=== PATIENT | male | born 2000 | race Caucasian/White ===

== ENCOUNTER 2021-08-15 10:54 | Emergency (ER) | payer OTHER, SELFPAY ==
[2021-08-15 11:09] VITALS: BP 157/74; PULSE 103; RESP 18; TEMP 37; O2SAT 100; BMI 36.0
--- NOTE | 2021-08-15 11:53 | ED.DENTAL ---
HPI - Dental/Oral General Chief complaint: Dental/Oral Stated complaint: dental pain, facial swelling Time Seen by Provider: 08/15/21 11:53 Source: patient Mode of arrival: ambulatory Limitations: no limitations History of Present Illness HPI Narrative: 21-year-old male presents with 2-3 days of lower facial swelling. Patient has had a toothache in his left lower molar for the last 2 weeks. Patient states the swelling in his cheek is getting smaller. No fevers. He is able to open his mouth all the way, can eat and drink, although it hurts to chew on the left side. Patient does have a dentist and has called his dentist. States pain is 10/10 especially at night. MD Complaint: tooth pain Location: Tooth # (18) Teeth map: 1. piece of tooth avulsed Onset (ago): day(s) (3) Duration: constant Severity: severe Severity scale (1-10): 10 Relieving factors: nothing Exacerbating factors: chewing Treatment prior to arrival: none Related Data Previous Rx's Medication Instructions Recorded clindamycin HCl 300 mg capsule 300 mg PO QID 10 Days #40 cap 08/15/21 Allergies Allergy/AdvReac Type Severity Reaction Status Date / Time No Known Allergies Allergy Unverified 08/16/20 19:09 [No Known Allergies*] Review of Systems Review of Systems: Constitutional : No Weight loss, No Fever, No Chills, No Night Sweats,No Fatigue, No Malaise ENT/Mouth : Dental pain, left facial swelling, No Hearing loss, No Ear Pain, No Nasal Congestion, NoSinus Pain, No Hoarseness, No sore throat, No Rhinorrhea, NoSwallowing Difficulty Eyes: No Eye Pain, No Swelling, No Redness, No Foreign Body, NoDischarge, No Vision Changes Cardiovascular : No Chest Pain, No SOB, No Dyspnea on Exertion, NoOrthopnea, No Edema, No Palpitations Respiratory : No Cough, No Sputum, No Wheezing, No Smoke Exposure, No Dyspnea Genitourinary : no irregular bleeding, No Dysuria, No UrinaryFrequency, No Hematuria, No Urinary Incontinence, No Urgency, No FlankPain, No Urinary Flow Changes, No Hesitancy Musculoskeletal : No joint pain, No Myalgias, No Joint Swelling Skin : No Skin Lesions, No rash Neuro : No Weakness, No Numbness, No Paresthesias, No Loss ofConsciousness, No Dizziness, No Headache PMFSH Past Medical History Medical History (Updated 08/15/21 @ 11:57 by SOLANGE Gibson) Patient denies medical problems Social History Social History Advance Directives: No Physical Exam Vital Signs: Vital Signs: Last Vital Signs Temp 98.6 F 08/15/21 11:09 Pulse 103 H 08/15/21 11:09 Resp 18 08/15/21 11:09 BP 157/74 H 08/15/21 11:09 Pulse Ox 100 08/15/21 11:09 Body Mass Index 36.0 Const: General: cooperative, no acute distress, well developed, alert and awake Nutritional Appearance: well nourished Orientation/consciousness: patient oriented x3 Limitations: no limitations HENMT: Head: Yes normal to inspection, Yes normocephalic and Yes atraumatic Ears: hearing grossly normal bilaterally, external ears normal, TM's normal bilaterally and EAC's normal General nose exam: Normal external nose present Face and sinus: Yes sinuses nontender, Yes erythema, Yes edema and No Facial tenderness on exam of face and sinuses Mouth: Normal oral and palatal mucosa present Teeth and gingiva: abnormal dentition Teeth image: 1. piece of tooth broken off Throat: Yes posterior oropharynx normal Eyes: Conjunctivae: conjunctivae normal Pupils: Equal, round and reactive pupils present EOM: EOMs intact bilaterally Neck: Neck: Yes full ROM, Yes no lymphadenopathy and Yes supple Resp: Effort & Inspection: normal respiratory effort and able to speak in complete sentences Auscultation: clear to auscultation bilaterally, no crackles, no rales, no rhonchi and no wheezes Cardio: Rate: regular rate Rhythm: regular rhythm Heart sounds: S1 normal heart sound present and S2 normal heart sound present Skin: General skin exam: no rashes or lesions noted Neuro: General: patient oriented x3, tone normal and moves all extremities Cranial nerves: Yes Equal, round and reactive pupils present Extrem: General: Yes normal to inspection and Yes full ROM Psych: Appearance: grossly normal Affect: normal affect Attitude: cooperative Thought process: Normal thought process present Course Course Course Narrative: 21-year-old male presents with 2-3 days of left lower facial swelling. No fevers. No trismus. Patient can eat and drink. On exam, patient has stable vitals, can open his mouth all the way, has a cracked tooth 18, with a piece of the tooth avulsed. No palpable gingival abscess, no cellulitis of the gingiva. No submandibular swelling, no swelling of the floor of the mouth. Mild left facial swelling. Clindamycin, f/u with dentist. Return precautions given Discharge Plan Discharge Clinical Impression: Dental abscess Patient Disposition: Home, Self-Care Instructions: Dental Abscess (ED) Additional Instructions: Please fill your prescriptions antibiotics and start soon as possible. Want you to take 3 doses today before midnight. Please call dentist today and tell them you have a dental abscess, and that you are started a 10 day course of antibiotics. Some dentists will wait until you are done with antibiotics before they pull your tooth. your dentist will make that decision please return if you fevers, trouble opening up opening your mouth, nausea, vomiting, or any other new or concerning symptoms Prescriptions: New clindamycin HCl 300 mg capsule 300 mg PO QID 10 Days Qty: 40 RF: 0 Interventions: ED Discharge Assessment Last Done: 08/15/21 12:08 Discharge Date/Time: 08/15/21 12:09
[2021-08-15] MEDS: Diphth,Pertus(ACell),Tet Adult 0.5 ML SYRINGE IM (12:03)
== END 2021-08-15 12:09 | disposition home or self-care (01) ==
PROVIDERS: Emergency Provider Emergency Medicine
DX: K04.7 Periapical abscess without sinus (principal)
CPT/HCPCS: 90471; 90715; 99283; 99284

== ENCOUNTER 2022-10-25 09:55 | Emergency (ER) | payer OTHER, SELFPAY ==
[2022-10-25 10:11] VITALS: BP 148/72; PULSE 82; RESP 18; TEMP 36.9; O2SAT 97; BMI 36.9
--- NOTE | 2022-10-25 10:18 | ED_ITS ---
HPI - Nausea/Vomiting/Diarrhea General Chief complaint: Nausea/Vomiting/Diarrhea Stated complaint: vomiting Time Seen by Provider: 10/25/22 10:16 Source: patient Mode of arrival: ambulatory Limitations: no limitations History of Present Illness HPI Narrative: 22-year-old otherwise healthy male presents to the ER for evaluation of 1 day of bilious vomiting and diarrhea. Patient states last night after eating a large meal he had several episodes of vomiting. Was food contents at that time. He also had a couple episodes of loose stool and some central abdominal cramping. He woke up at 05:00 today with ongoing vomiting and diarrhea. He states the vomitus now is yellow and bilious. He denies any fever or chills. Last episode of vomiting was 1 hour ago. No known sick contacts or bad food exposures per h is report. MD elicited complaint: nausea, vomiting, diarrhea and abdominal pain Onset (ago): day(s) (1) Description of vomiting: food contents Description of diarrhea: semi-solid Associated nausea: Yes Associated abdominal pain: Yes Location of pain: diffuse Radiation: diffuse Pain consistency: intermittent Severity: moderate Quality: cramping Exacerbating factors: eating Relieving factors: none Associated symptoms: denies other symptoms Related Data Previous Rx's Medication Instructions Recorded clindamycin HCl 300 mg capsule 300 mg PO QID 10 days #40 caps 08/15/21 ondansetron 4 mg disintegrating 4 mg PO Q8H PRN nausea and 10/25/22 tablet vomiting #10 tabs Allergies Allergy/AdvReac Type Severity Reaction Status Date / Time No Known Allergies Allergy Unverified 08/16/20 19:09 [No Known Allergies*] Review of Systems Review of Systems: Constitutional: No Fever, No Chills ENT/Mouth: No sore throat, No Rhinorrhea, No Swallowing Difficulty Cardiovascular: No Chest Pain, No SOB, No Orthopnea, No Edema Respiratory: No Cough, No Sputum, No Wheezing, No dyspnea Gastrointestinal: + Nausea, +Vomiting, + Diarrhea, + abdominal Pain, No Hematochezia, No Melena Genitourinary: No Dysuria, No Urinary Frequency, No Hematuria Musculoskeletal: No joint pain, No Myalgias Skin: No Skin Lesions, No rash Neuro: No Weakness, No Numbness, No Dizziness, + Headache Heme/Lymph: No Bruising, No Lymphadenopathy Endocrine: No Polyuria, No Polydipsia Gastrointestinal: Gastrointestinal: Reports nausea PMFSH Past Medical History Medical History (Updated 10/25/22 @ 11:56 by SOLANGE Monroy) Patient denies medical problems Social History Social History Advance Directives: No Advance Directives Information Provided: No Physical Exam Vital Signs: Vital Signs: Last Vital Signs Temp 98.4 F 10/25/22 10:11 Pulse 82 10/25/22 10:11 Resp 18 10/25/22 10:11 BP 148/72 H 10/25/22 10:11 Pulse Ox 97 10/25/22 10:11 O2 Del Method 10/25/22 10:11 BMI result Body Mass Index 36.9 Appearance: Alert. Oriented X3. No acute distress. Eyes: Pupils equal, round and reactive to light. ENT: Pharynx normal. Moist mucous membranes. Neck: Normal inspection. Neck supple. CVS: Normal heart rate and rhythm. Pulses normal. Respiratory: No respiratory distress. Breath sounds normal. Abdomen: Soft and nontender. +BS x4 Skin: Skin warm and dry. Normal skin color. Normal skin turgor. No rashes. Extremities: No lower extremity edema. Neuro: Oriented X 3. Grossly normal, nonfocal Course Course Course Narrative: 22-year-old male presents to the ER for evaluation of vomiting, diarrhea and periumbilical abdominal pain that started yesterday. Last episode of vomiting was 1 hour prior to arrival. He arrived to the ER appearing well, abdomen is soft and nontender. Vital signs are stable. Will check basic lab workup, check for flu and COVID. Provide IV fluids and antiemetic.Will reassess. Dispo pending results & improvement. Will reassess. Reevaluation(s) Reevaluation #1: Dispo pending results of her event. Patient checking on his cellphone. He is tolerating oral Gen drill. He is feeling better after fluids and Zofran. His labs are unremarkable. Fluid COVID are negative. Most likely viral gastroenteritis. Stable for discharge home with p.r.n. Zofran and supportive care. All questions were answered. Patient agrees plan Medications Administered Discontinued Medications Generic Name Dose Route Start Last Admin Trade Name Freq PRN Reason Stop Dose Admin Sodium Chloride 1,000 mls @ 999 mls/hr 10/25/22 10:30 10/25/22 11:22 Ns IVCONT 10/25/22 11:30 999 mls/hr .Q1H1M LARISA Administration Ondansetron HCl 4 mg 10/25/22 10:18 10/25/22 11:22 Ondansetron Hcl 4 Mg/2 Ml Vial IVPUSH 10/25/22 10:19 4 mg ONCE ONE Administration MDM - Nausea/Vomiting/Diarrhea Lab Data Result diagrams: 10/25/22 11:10/25/22 11:22 Labs: Lab Results 10/25/22 10/25/22 10/25/22 Range/Units 11: 11: 11: WBC 12.2 H (4.8-10.8) X10*3/uL RBC 5.47 (4.60-5.80) X10*6/uL Hgb 16.1 (14.0-18.0) g/dl Hct 47.1 (42.0-52.0) % MCV 86.1 (80.0-98.0) fL MCH 29.4 (27.0-33.0) pg MCHC 34.2 (31.0-36.0) g/dl RDW 12.9 (11.0-16.0) % Plt Count 212 (160-400) X10*3/uL MPV 11.3 (9.4-12.4) fL Immature Gran % (Auto) 0.3 (0.0-0.4) % Neut % (Auto) 80.3 H (45-73) % Lymph % (Auto) 12.7 L (20-40) % Estill % (Auto) 6.3 (2-11) % Eos % (Auto) 0.2 (0-4) % Baso % (Auto) 0.2 (0-2) % Lymph # (Auto) 1.5 (1.2-4.9) X10*3/uL Estill # (Auto) 0.8 (0.1-1.2) X10*3/uL Eos # (Auto) 0.0 (0.0-0.4) X10*3/uL Baso # (Auto) 0.0 (0.0-0.2) X10*3/uL Abs Immat Gran (auto) 0.04 H (0.00-0.03) X10*3/uL Absolute Neuts (auto) 9.8 H (2.0-8.3) x10*3/uL Absolute Nucleated RBC 0.000 (0.0-0.012) X10*3/uL Nucleated RBC % (auto) 0.0 (0.0-0.2) /100WBC Sodium 143 (135-145) mmol/L Potassium 4.4 (3.3-5.1) mmol/L Chloride 108 (96-108) mmol/L Carbon Dioxide 24 (22-29) mmol/L Anion Gap 15 (12-20) BUN 20 H (9-16) mg/dL Creatinine 0.89 (0.5-1.4) mg/dL Estim Creat Clear Calc 163.0 Estimated GFR > 60 Random Glucose 91 (60-115) mg/dL Calcium 10.4 H (8.4-10.2) mg/dL Magnesium 2.1 (1.6-2.6) mg/dL Total Bilirubin 0.8 (0.0-1.0) mg/dL Direct Bilirubin 0.3 (0.0-0.5) mg/dL AST 38 H (5-37) U/L ALT 36 (0-40) U/L Alkaline Phosphatase 96 (39-117) U/L Total Protein 7.5 (6.5-8.0) g/dL Albumin 4.8 (3.5-5.0) g/dL Lipase (8-78) U/L COVID-19 (GIULIANO) (Negative) COVID-19 Clin Com Influenza Type A (ARCHANA) Negative (Negative) Influenza Type B (ARCHANA) Negative (Negative) Influenza A & B Note See Note 10/25/22 10/25/22 Range/Units 11:22 11:22 WBC (4.8-10.8) X10*3/uL RBC (4.60-5.80) X10*6/uL Hgb (14.0-18.0) g/dl Hct (42.0-52.0) % MCV (80.0-98.0) fL MCH (27.0-33.0) pg MCHC (31.0-36.0) g/dl RDW (11.0-16.0) % Plt Count (160-400) X10*3/uL MPV (9.4-12.4) fL Immature Gran % (Auto) (0.0-0.4) % Neut % (Auto) (45-73) % Lymph % (Auto) (20-40) % Estill % (Auto) (2-11) % Eos % (Auto) (0-4) % Baso % (Auto) (0-2) % Lymph # (Auto) (1.2-4.9) X10*3/uL Estill # (Auto) (0.1-1.2) X10*3/uL Eos # (Auto) (0.0-0.4) X10*3/uL Baso # (Auto) (0.0-0.2) X10*3/uL Abs Immat Gran (auto) (0.00-0.03) X10*3/uL Absolute Neuts (auto) (2.0-8.3) x10*3/uL Absolute Nucleated RBC (0.0-0.012) X10*3/uL Nucleated RBC % (auto) (0.0-0.2) /100WBC Sodium (135-145) mmol/L Potassium (3.3-5.1) mmol/L Chloride (96-108) mmol/L Carbon Dioxide (22-29) mmol/L Anion Gap (12-20) BUN (9-16) mg/dL Creatinine (0.5-1.4) mg/dL Estim Creat Clear Calc Estimated GFR Random Glucose (60-115) mg/dL Calcium (8.4-10.2) mg/dL Magnesium (1.6-2.6) mg/dL Total Bilirubin (0.0-1.0) mg/dL Direct Bilirubin (0.0-0.5) mg/dL AST (5-37) U/L ALT (0-40) U/L Alkaline Phosphatase (39-117) U/L Total Protein (6.5-8.0) g/dL Albumin (3.5-5.0) g/dL Lipase 15 (8-78) U/L COVID-19 (GIULIANO) Negative (Negative) COVID-19 Clin Com See Note Influenza Type A (ARCHANA) (Negative) Influenza Type B (ARCHANA) (Negative) Influenza A & B Note Discharge Plan Discharge Clinical Impression: Gastroenteritis Patient Disposition: Home, Self-Care Instructions: Gastroenteritis (ED) Additional Instructions: You lab workup today was unremarkable. You are negative for COVID and Flu. You most likely have a viral GI bug also known as gastroenteritis. Treatment is supportive care, symptoms usually resolve on their own in 48-72 hours. Recommend rest and plenty of oral hydration. Stick to a bland diet like soup and toast while you are not feeling well. Take the prescribed medication as needed for nausea. Recommend over the counter Pepto Bismol or Imodium for upset stomach and diarrhea. Follow up with your doctor as needed. If you develop new or worsening symptoms call 911 or come back to the ER for further evaluation. Prescriptions: New ondansetron 4 mg tablet,disintegrating 4 mg PO Q8H PRN (Reason: nausea and vomiting) Qty: 10 0RF No Action clindamycin HCl 300 mg capsule 300 mg PO QID 10 Days Qty: 40 0RF Stand Alone Forms: Work/School Release
--- OUTSIDE RECORDS SUMMARY | 2022-10-25 10:27 | XMS_ITS | Continuity of Care Document ---
:2000 Author Organization [facility] Address [address] [place] [id number]- Care Team Providers Name Role Phone Ely De La Rosa MD Primary Care Physician Encounter [facility] Date(s): 12/08/19 - 03/15/20 [facility] [address] [place] [id number]- Attending Physician: Not on Staff, Attending MD Admitting Physician: Ely De La Rosa MD Allergies, Adverse Reactions, Alerts Substance Reaction Severity Status NKA Active Immunizations Given and Recorded Vaccine Date Status Refusal Reason Human Papillomavirus Vaccine 08/24/14 Given Human Papillomavirus Vaccine 04/28/14 Given Human Papillomavirus Vaccine 02/22/14 Given tetanus/diphtheria/pertussis, acel(Tdap)1 01/05/13 Given Meningococcal Conjugate Vaccine2 01/05/13 Given influenza virus vaccine, inactivated4 01/05/13 Given influenza virus vaccine, inactivated5 10/15/11 Given influenza virus vaccine, inactivated6 10/14/10 Given Varicella Virus Vaccine 05/12/07 Given Varicella Virus Vaccine 05/11/02 Given Measles/Mumps/Rubella Virus Vaccine 05/23/05 Given Measles/Mumps/Rubella Virus Vaccine 05/11/02 Given Poliovirus Vaccine, Inactivated 05/23/05 Given Poliovirus Vaccine, Inactivated 01 Given Poliovirus Vaccine, Inactivated 01 Given Poliovirus Vaccine, Inactivated 01 Given Diphth/Pertussis,Acel/Tetanus (oldterm) 05/23/05 Given Diphth/Pertussis,Acel/Tetanus (oldterm) 07/27/02 Given Diphth/Pertussis,Acel/Tetanus (oldterm) 01 Given Diphth/Pertussis,Acel/Tetanus (oldterm) 01 Given Diphth/Pertussis,Acel/Tetanus (oldterm) 01 Given Haemophilus B Conj Vaccine (oldterm) 05/11/02 Given Haemophilus B Conj Vaccine (oldterm) 01 Given Haemophilus B Conj Vaccine (oldterm) 01 Given Haemophilus B Conj Vaccine (oldterm) 01 Given Hepatitis B Vaccine (old term) 01 Given Hepatitis B Vaccine (old term) 01 Given Hepatitis B Vaccine (old term) 01 Given Pneumococcal Conjugate (PCV7) (oldterm) 01 Given Pneumococcal Conjugate (PCV7) (oldterm) 01 Given Pneumococcal Conjugate (PCV7) (oldterm) 01 Given Not Given Vaccine Date Status Refusal Reason Meningococcal Conjugate Vaccine3 04/20/18 Not Given Parent Or Guardian Refuses 1Admin Note: VIS dated 12/23/2011 [id number] Note: VIS dated 09/12/2011 given3 Admin Note: VIS from 05/31/12 [id number] Note: VIS dated 06/24/11 [id number] Note: vis given [id number] Note: Pt left before vaccine could be given Medications omeprazole 20 mg oral delayed release tablet 1 tablet = 20 mg, By Mouth, Daily, # 30 tablet, 0 Refills, Maintenance, 12/08/19 15:59:00 EST, [facility] - [address], 174.7, cm, 04/20/18 13:32:00 EDT, Height, 104.6, kg, 12/08/19 14:16:00 EST, Dry Weight Start Date: 12/08/19 Stop Date: 01/07/20 Status: Ordered Problem List Condition Effective Dates Status Health Status Informant Asthma(Confirmed) 2006 Active Attention deficit hyperactivity Active disorder(Confirmed) Malocclusion with articulation Active problem(Confirmed) Myopia(Confirmed) Active Social History Social History Type Response Smoking Status Never smoker; Tobacco user i n household: Yes; Type: Cigarettes; Other: mom smokes; entered on: 04/20/18 Sex
--- OUTSIDE RECORDS SUMMARY | 2022-10-25 10:27 | XMS_ITS | Continuity of Care Document ---
:2001 Author Organization [facility] Address [address] [place] [address]- Care Team Providers Name Role Phone De La Rosa MD, Ely Melendez Primary Care Physician [place] [facility] [place]16/20 [facility] [address] [place] [id number]- [facility] Attending Physician: Jason Jin MD Referring Physician: Ely De La Rosa MD Allergies, [...] Guardian Refuses 1Admin Note: VIS dated 12/23/2011 [id number] Note: VIS dated 09/12/2011 given3 Admin Note: VIS from 05/31/12 [id number] Note: VIS dated 06/24/11 [id number] Note: vis given [id number] Note: Pt left before vaccine could be [...]
--- OUTSIDE RECORDS SUMMARY | 2022-10-25 10:27 | XMS_ITS | Continuity of Care Document ---
:2001 Author Organization [facility] Address [address] [place] [address]- Care Team Providers Name Role Phone De La Rosa MD, Ely Melendez Primary Care Physician Encounter [facility] [place] Date(s): 01/17/20 - 01/27/20 [facility] [address] [place] [address]- [place] Attending Physician: Lindsey Ocampo Admitting Physician: AdmLindsey li Referring Physician: AdmtrLindsey Allergies, Adverse Reactions, Alerts Substance Reaction Severity [...] Guardian Refuses 1Admin Note: VIS dated 12/23/2011 [id number] Note: VIS dated 09/12/2011 given3 Admin Note: VIS from 05/31/12 [id number] Note: VIS dated 06/24/11 [id number] Note: vis given [id number] Note: Pt left before vaccine could be [...]
--- OUTSIDE RECORDS SUMMARY | 2022-10-25 10:27 | XMS_ITS | Continuity of Care Document ---
:2001 Author Organization [facility] Address [address] [place] [id number]- Care Team Providers Name Role Phone De La Rosa MD, Ely Melendez Primary Care Physician Encounter [facility] [place] Date(s): 02/14/20 - 02/24/20 [facility] [address] [place] [id number]- Attending Physician: Lindsey Ocampo Admitting Physician: AdmLindsey [...] Guardian Refuses 1Admin Note: VIS dated 12/23/2011 [id number] Note: VIS dated 09/12/2011 given3 Admin Note: VIS from 05/31/12 [id number] Note: VIS dated 06/24/11 [id number] Note: vis given [id number] Note: Pt left before vaccine could be [...]
[2022-10-25] MEDS: ondansetron HCL 4 MG/2 ML VIAL IVPUSH (11:22)
[2022-10-25] MEDS: 0.9 % Sodium Chloride 1,000 ML 999 ML IVCONT (11:22)
[2022-10-25 11:33] LABS: MANUAL DIFF FLAG NO
[2022-10-25 11:35] LABS: Basophils Percent Auto 0.2 % (0-2); Eosinophils Percent Auto 0.2 % (0-4); Hematocrit 47.1 % (42.0-52.0); Hemoglobin 16.1 g/dl (14.0-18.0); Imm Gran Abs Auto 0.04 X10*3/uL (0.00-0.03); Imm Gran Pct Auto 0.3 % (0.0-0.4); Lymphocytes Absolute Auto 1.5 X10*3/uL (1.2-4.9); Lymphocytes Percent Auto 12.7 % (20-40); Mean Corpuscular HGB Conc 34.2 g/dl (31.0-36.0); Mean Corpuscular Hemoglobin 29.4 pg (27.0-33.0); Mean Corpuscular Volume 86.1 fL (80.0-98.0); Mean Platelet Volume 11.3 fL (9.4-12.4); Monocytes Absolute Auto 0.8 X10*3/uL (0.1-1.2); Monocytes Percent Auto 6.3 % (2-11); Neutrophils Absolute Auto 9.8 x10*3/uL (2.0-8.3); Neutrophils Percent Auto 80.3 % (45-73); Platelet Count 212 X10*3/uL (160-400); Red Blood Count 5.47 X10*6/uL (4.60-5.80); Red Cell Distribution Width 12.9 % (11.0-16.0); White Blood Count 12.2 X10*3/uL (4.8-10.8)
[2022-10-25 11:48] LABS: COVID-19 Test Negative (Negative); IDNOW Serial# BCCEAD1C
[2022-10-25 11:52] LABS: Lipase 15 U/L (8-78)
[2022-10-25 11:54] LABS: IDNOW Serial# 9DB6401D; Influenza A Negative (Negative); Influenza B2 Negative (Negative)
[2022-10-25 11:59] LABS: Alanine Aminotransferase 36 U/L (0-40); Albumin Level 4.8 g/dL (3.5-5.0); Alkaline Phosphatase 96 U/L (39-117); Anion Gap 15 (12-20); Aspartate Amino Transferase 38 U/L (5-37); Bilirubin Direct 0.3 mg/dL (0.0-0.5); Bilirubin Total 0.8 mg/dL (0.0-1.0); Blood Urea Nitrogen 20 mg/dL (9-16); Calcium 10.4 mg/dL (8.4-10.2); Carbon Dioxide 24 mmol/L (22-29); Chloride 108 mmol/L (96-108); Estimated Glomerular Filt Rate > 60; Glucose Random 91 mg/dL (60-115); Magnesium 2.1 mg/dL (1.6-2.6); Potassium 4.4 mmol/L (3.3-5.1); Sodium 143 mmol/L (135-145); Total Protein 7.5 g/dL (6.5-8.0)
--- NOTE | 2022-10-25 12:03 | PC.NURSE ---
PT TOLERATING PO TRIAL WITH NO ISSUE
== END 2022-10-25 12:15 | disposition home or self-care (01) ==
PROVIDERS: Physician Assistant; Emergency Provider Emergency Medicine
DX: K52.9 Noninfective gastroenteritis and colitis, unspecified (principal); R11.2 Nausea with vomiting, unspecified; Z20.822 Contact with and (suspected) exposure to COVID-19
CPT/HCPCS: 36415; 80048; 80076; 83690; 83735; 85025; 87502; 87635; 96374; 99283; 99284; J2405

== ENCOUNTER 2025-03-31 15:29 | Emergency (ER) | payer OTHER, SELFPAY ==
[2025-03-31 15:54] VITALS: BP 117/67; PULSE 92; RESP 16; TEMP 36.8; O2SAT 97; BMI 34.3
--- NOTE | 2025-03-31 15:54 | ED_ITS ---
HPI - Extremity Injury (Upper) General Chief Complaint: Wound/Laceration Stated Complaint: Left second (index)finger injury Time Seen by Provider: 03/31/25 15:57 Source: patient Mode of arrival: ambulatory Limitations: no limitations History of Present Illness ED Provider: jose lama program director group work HPI narrative: Patient is a 25 old male who presents emergency department with 3 days of pain redness and swelling to the distal tip of the left 2nd digit. Denies any precipitating injury or trauma. Denies any nail biting. 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 No fevers or chills. Full range of motion to the digit. Related Data Previous Rx's ?Medication ?Instructions ?Recorded clindamycin HCl 300 mg capsule 300 mg PO QID 10 days #40 caps 08/15/21 ondansetron 4 mg disintegrating 4 mg PO Q8H PRN nausea and 10/25/22 tablet vomiting #10 tabs bacitracin 500 unit/gram topical 1 appl topical TID #28 grams 03/31/25 ointment cephalexin 500 mg capsule 500 mg PO QID #28 caps 03/31/25 Allergies Allergy/AdvReac Type Severity Reaction Status Date / Time No Known Allergies Allergy Verified 03/31/25 15:58 [No Known Allergies*] Review of Systems Review of Systems: Yes all other systems are reviewed and are negative PMFSH Past Medical History Attestation statement: The following information was validated with the patient. Source: old records reviewed Medical History Patient denies medical problems Physical Exam Vital Signs: Vital Signs: Last Vital Signs Temp 98.2 F 03/31/25 15:54 Pulse 92 03/31/25 15:54 Resp 16 03/31/25 15:54 BP 117/67 03/31/25 15:54 Pulse Ox 97 03/31/25 15:54 O2 Del Method Room Air 03/31/25 15:54 BMI result Body Mass Index 34.3 Appearance: Alert.?Oriented to person, place and time. No acute distress.?Normal affect. CVS: Heart sounds normal. Normal heart rate and rhythm.? Pulses normal.?? Respiratory: No respiratory distress.? Lung sounds clear to auscultation bilaterally?? Skin: Skin warm and dry.? Normal skin color.? Extremities: Full range of motion to the left 2nd digit/hand. There is erythema and mild swelling to the proximal and lateral nail fold without apparent abscess Neuro: Moves all extremities spontaneously. Sensation intact bilaterally. Ambulates with normal steady gait. Medical Decision Making Medical Decision Making [facility] Narrative: Patient is a 25 year old male who presents emergency department for evaluation of paronychia to the left 2nd digit. History and examination is not consistent with abscess, felon, herpetic yue, has no signs of systemic toxicity. Discussed conservative treatment, course of oral antibiotics sent to pharmacy, worrisome signs and symptoms that would warrant re-evaluation. All questions answered. Stable for discharge Differential Diagnosis Differential Diagnoses: The differential diagnosis associated with the presentation includes (See narrative above) External Record Review External record reviewed: Outpatient record Prescription Management I considered prescription management with: Antibiotic Chronic Conditions Patient?s care impacted by: Other (None) Discharge Plan Discharge Clinical Impression: Paronychia of finger Patient Disposition: Home, Self-Care Instructions: Paronychia (ED) Additional Instructions: As discussed, soak the finger in warm soapy water 3 times daily for 10-15 minutes. Apply topical antibiotic ointment to it. Take course of oral antibiotics as prescribed do not skip any doses or stopping early even if you begin to feel better. Monitor for signs of worsening infection which includes but is not limited to increasing pain, redness, swelling, pus-like discharge, fevers, chills, inability to move the finger. Follow-up with primary care doctor. Prescriptions: New bacitracin 500 unit/gram ointment 1 appl topical TID Qty: 28 0RF cephalexin 500 mg capsule 500 mg PO QID Qty: 28 0RF No Action clindamycin HCl 300 mg capsule 300 mg PO QID 10 Days Qty: 40 0RF ondansetron 4 mg tablet,disintegrating 4 mg PO Q8H PRN (Reason: nausea and vomiting) Qty: 10 0RF Referrals: Physician,Unknown J [Primary Care Provider] - Stand Alone Forms: Work/School Release Interventions: ED Discharge Assessment Last Done: 03/31/25 15:59 Print Language: [place] Leonean
[2025-03-31 15:59] VITALS: BP 117/67; PULSE 92; RESP 16; TEMP 36.8; O2SAT 97
== END 2025-03-31 16:03 | disposition home or self-care (01) ==
LOC: HO.ED 16:02
PROVIDERS: Emergency Provider Emergency Medicine
DX: L03.012 Cellulitis of left finger (principal); M79.645 Pain in left finger(s)
CPT/HCPCS: 99282; 99283

== ENCOUNTER 2025-10-21 16:41 | Inpatient (IN) | payer MEDICAID, SELFPAY ==
--- NOTE | ~2025-10-21 | CT_ITS ---
CLINICAL HISTORY: abdominal pain CT abdomen and pelvis with contrast Comparison: None provided Findings: LIMITED CHEST: Lung bases are clear. LIVER: No focal liver lesion. BILIARY: No gallbladder wall thickening, radiopaque stone, or ductal dilatation. PANCREAS: No mass or ductal dilatation. SPLEEN: No splenomegaly. KIDNEYS: No hydronephrosis or radiopaque stone. ADRENALS: No nodule. VASCULAR: No aneurysm. RETROPERITONEUM: No lymphadenopathy or mass. BOWEL/MESENTERY: No evidence of obstruction. No free fluid or air. There is pancolonic submucosal fat deposition. ABDOMINAL WALL: No mass or significant abnormality. URINARY BLADDER: No focal wall thickening. PELVIC NODES: No pelvic lymphadenopathy. PELVIC ORGANS: Normal for age. BONES: No acute fracture. OTHER: Negative. IMPRESSION: Pancolonic submucosal fat deposition, nonspecific, however may be seen in the setting of inflammatory bowel disease. This document has been electronically signed by: Lottie Manning MD on 10/21/2025 20:43:37
--- NOTE | ~2025-10-21 | US_ITS ---
CLINICAL HISTORY: elevated LFTs US abdomen limited Comparison: None provided Findings: The visualized pancreas is normal. The liver is mildly enlarged measuring 16.1 cm. There is no intrahepatic bile duct dilatation. The common duct is 0.3 mm in diameter. The gallbladder is normal. There is sonographic Beltran sign. The main portal vein is antegrade. The right kidney is 10.5 cm in length. No ascites. IMPRESSION: 1. No cholelithiasis. Mild hepatomegaly. This document has been electronically signed by: Lottie Manning MD on 10/21/2025 19:05:34
[2025-10-21 16:47] VITALS: BP 168/100; PULSE 110; RESP 18; TEMP 36.6; O2SAT 99; BMI 33.5
[2025-10-21 17:15] LABS: MANUAL DIFF FLAG NO
[2025-10-21 17:39] LABS: Hematocrit 48.0 % (42.0-52.0); Hemoglobin 16.2 g/dl (14.0-18.0); Imm Gran Abs Auto 0.03 X10*3/uL (0.00-0.03); Imm Gran Pct Auto 0.5 % (0.0-0.4); Lymphocytes Absolute Auto 1.7 X10*3/uL (1.2-4.9); Mean Corpuscular HGB Conc 33.8 g/dl (31.0-36.0); Mean Corpuscular Hemoglobin 29.8 pg (27.0-33.0); Mean Corpuscular Volume 88.2 fL (80.0-98.0); NRBC Abs Auto 0.000 X10*3/uL (0.0-0.012); NRBC Pct Auto 0.0 /100WBC (0.0-0.2); Platelet Count 207 X10*3/uL (160-400); Red Blood Count 5.44 X10*6/uL (4.60-5.80); White Blood Count 6.0 X10*3/uL (4.8-10.8)
[2025-10-21 17:46] LABS: Alanine Aminotransferase 2528 U/L (0-40); Albumin Level 4.6 g/dL (3.5-5.0); Alkaline Phosphatase 215 U/L (39-117); Anion Gap 16 (12-20); Aspartate Amino Transferase 1160 U/L (5-37); Blood Urea Nitrogen 9 mg/dL (9-16); Calcium 9.9 mg/dL (8.4-10.2); Carbon Dioxide 24 mmol/L (22-29); Chloride 108 mmol/L (96-108); Creatinine Clr Calc Pharmacy 155.4; Estimated Glomerular Filt Rate > 60; Lipase 10 U/L (8-78); Potassium 3.8 mmol/L (3.3-5.1); Sodium 144 mmol/L (135-145); Total Protein 7.5 g/dL (6.5-8.0)
[2025-10-21 17:56] VITALS: BP 146/76; PULSE 70; RESP 18; TEMP 36.9; O2SAT 100
--- NOTE | 2025-10-21 17:58 | PC.NURSE ---
Addendum entered by Jaymie Adams RN 10/21/25 18:43: Sclera appears jaundice. Urine noted to be tea colored. Original Note: Patient presents to the ED with 1 week of abdominal pain. Patient states pain occurred around 1 month ago and came back one week ago. Patient states last bowel movement was 3 or 4 days ago. VSS. Labs drawn and provider in room.
--- NOTE | 2025-10-21 18:08 | ED.ABDPAIN ---
HPI - Abdominal Pain General Chief Complaint: Abdominal Pain Stated Complaint: General Medical Time Seen by Provider: 10/21/25 17:57 Source: patient Mode of arrival: ambulatory Limitations: no limitations History of Present Illness ED Provider: DR. Mora HPI narrative: 25-year-old male came in for evaluation of diffuse abdominal pain x2 weeks, patient overall do not feel well feels generalized abdominal pain started with nausea and vomiting that improved for the past 2 days, history of alcohol use until a year ago, now he drinks alcohol occasionally, smokes marijuana daily, complaining of diffuse abdominal discomfort, generalized weakness, urinating a dark urine, noted by his family that is eyes are yellow. No recent sickness or fever, no recent travel out of the country, no sick contacts exposure. Related Data Previous Rx's ?Medication ?Instructions ?Recorded clindamycin HCl 300 mg capsule 300 mg PO QID 10 days #40 caps 08/15/21 ondansetron 4 mg disintegrating 4 mg PO Q8H PRN nausea and 10/25/22 tablet vomiting #10 tabs bacitracin 500 unit/gram topical 1 appl topical TID #28 grams 03/31/25 ointment cephalexin 500 mg capsule 500 mg PO QID #28 caps 03/31/25 Allergies Allergy/AdvReac Type Severity Reaction Status Date / Time No Known Allergies (No Known Allergy Verified 10/21/25 16:49 Allergies*) Review of Systems Review of Systems All other systems are reviewed and are negative Constitutional: Reports as per HPI and Reports no additional constitutional complaints Eyes: Reports as per HPI and Reports no additional eye complaints Reports system reviewed and no additional complaints, except as documented Cardiovascular: Reports as per HPI and Reports no additional cardiovascular complaints Respiratory: Reports as per HPI and Reports no additional respiratory complaints Gastrointestinal: Reports as per HPI and Reports no additional gastrointestinal complaints Genitourinary: Reports no additional female genitourinary complaints Musculoskeletal: Reports no additional musculoskeletal complaints Skin/Breast: Reports system reviewed and no additional complaints, except as docu Psychiatric: Reports no additional psychiatric complaints Endocrine: Reports no additional endocrine complaints Hematologic/Lymphatic: Reports no additional hematologic/lymphatic complaints Allergic/Immunologic: Reports no additional allergic/immunologic complaints Reports system reviewed and no additional complaints, except as documented and Reports Abnormal speech present PMFSH Past Medical History Medical History Patient denies medical problems Social History Social History Alcohol intake: current Alcohol intake frequency: a few times a month Alcohol type: beer Smoked in Last 30 Days: No Use of substances other than those prescribed or required for medical reasons: No Advance Directives: No Advance Directives Information Provided: No Do you have a plan to hurt others: No Plan Physical Exam ED Vital Signs: Vital Signs - 24 hr 10/21/25 16:47 10/21/25 17:56 10/21/25 21:30 Temperature 98 F 98.4 F 98.2 F Pulse Rate 110 H 70 62 Respiratory Rate 18 18 20 Blood Pressure 168/100 H 146/76 H 130/75 Pulse Oximetry 99 100 98 Oxygen Delivery Method Room Air Room Air Room Air BMI result Body Mass Index 33.5 Vital signs have been reviewed and appear to be correct. Blood pressure elevated. Heart rate normal. Respiratory rate normal. Temperature normal. Oxygen saturation normal. Appearance: Alert. Oriented X3. No acute distress. Head: Normal external exam. Normocephalic. Atraumatic. No Ignacio signs noted. No raccoon eyes noted Eyes: PERRLA. EOMI. Conjunctiva and sclera are jaundice, Eyelids normal. ENT: TM's Normal. Pharynx normal. Uvula midline. Moist mucous membranes. No trismus noted. No drooling noted. No muffled voice noted. Neck: Normal inspection. Neck supple. FROM. No adenopathy. Thyroid Normal. No meningeal signs. No neck mass noted. CVS: Normal heart rate and rhythm. Heart sound normal. No murmurs noted. Pulses normal throughout. Respiratory: No respiratory distress. Painless inspiration. Breath sounds normal. No wheezes/rales/rhonchi noted. Chest nontender. No accessory muscle usage noted or decreased air movement noted. Abdomen: Soft and nontender. Bowel sounds normal in all 4 quadrants. No distention noted. No organomegaly noted. No visible injury noted. Back: No CVA tenderness. Full range of motion noted. Skin: Skin warm and dry. Normal skin color. Normal skin turgor. No rashes/lesions/lacerations noted. Extremities: No lower extremity edema. Extremities exhibit normal range of motion. Extremities nontender. Neuro: Oriented X 3. Cranial nerve exam: II-XII are grossly intact No motor deficit. No sensory deficit. Reflexes normal. Course Reevaluation(s) Reevaluation #1: 25-year-old male came in for abdominal pain and elevated LFTs, CT/ultrasound unremarkable, will admit to medical floor for IV fluids Time: 20:57 Medical Decision Making Differential Diagnosis Differential Diagnoses: The differential diagnosis associated with the presentation includes ( Transaminitis, hepatitis, obstructive biliary system, electrolyte derangement, severe anemia, electrolyte derangement.) Admission/Observation Consideration of admission/observation: Escalation of care including admission/observation considered Consult Healthcare Provider Management of the patient was discussed with: Hospitalist ( Dr. Poe) Lab Data MDM Lab Attestation statement: I reviewed the patient's lab results. 10/21/25 17:09 10/21/25 17:09 Labs: Lab Results 10/21/25 10/21/25 10/21/25 Range/Units 17:09 18:24 21:21 WBC 6.0 (4.8-10.8) X10*3/uL RBC 5.44 (4.60-5.80) X10*6/uL Hgb 16.2 (14.0-18.0) g/dl Hct 48.0 (42.0-52.0) % MCV 88.2 (80.0-98.0) fL MCH 29.8 (27.0-33.0) pg MCHC 33.8 (31.0-36.0) g/dl RDW 14.6 (11.0-16.0) % Plt Count 207 (160-400) X10*3/uL MPV 11.7 (9.4-12.4) fL Immature Gran % (Auto) 0.5 H (0.0-0.4) % Neut % (Auto) 53.9 (45-73) % Lymph % (Auto) 28.8 (20-40) % [place] % (Auto) 14.2 H (2-11) % Eos % (Auto) 1.8 (0-4) % Baso % (Auto) 0.8 (0-2) % Lymph # (Auto) 1.7 (1.2-4.9) X10*3/uL [place] # (Auto) 0.9 (0.1-1.2) X10*3/uL Eos # (Auto) 0.1 (0.0-0.4) X10*3/uL Baso # (Auto) 0.1 (0.0-0.2) X10*3/uL Abs Immat Gran (auto) 0.03 (0.00-0.03) X10*3/uL Absolute Neuts (auto) 3.3 (2.0-8.3) x10*3/uL Absolute Nucleated RBC 0.000 (0.0-0.012) X10*3/uL Nucleated RBC % (auto) 0.0 (0.0-0.2) /100WBC PT 15.4 H (11.2-13.5) SEC INR 1.3 H (0.9-1.1) Sodium 144 (135-145) mmol/L Potassium 3.8 (3.3-5.1) mmol/L Chloride 108 (96-108) mmol/L Carbon Dioxide 24 (22-29) mmol/L Anion Gap 16 (12-20) BUN 9 (9-16) mg/dL Creatinine 0.84 (0.5-1.4) mg/dL Estim Creat Clear Calc 155.4 Estimated GFR > 60 Random Glucose 85 (60-115) mg/dL Calcium 9.9 (8.4-10.2) mg/dL Total Bilirubin 11.8 H (0.0-1.0) mg/dL Direct Bilirubin 7.6 H (0.0-0.5) mg/dL AST 1160 H (5-37) U/L ALT 2528 H (0-40) U/L Alkaline Phosphatase 215 H (39-117) U/L Total Protein 7.5 (6.5-8.0) g/dL Albumin 4.6 (3.5-5.0) g/dL Lipase 10 (8-78) U/L Urine Color Dark Yellow Urine Appearance Clear Urine pH 6.0 (5.0-9.0) Ur Specific [place] >= 1.030 H (1.005-1.025) Urine Protein 30 (1+) H (Neg-Trace) mg/dL Urine Glucose (UA) Negative (Negative) mg/dL Urine Ketones Trace (Negative) mg/dL Urine Blood Negative (Negative) Urine Nitrite Positive H (Negative) Ur Leukocyte Esterase Moderate (2+) H (Negative) Urine RBC 3-5 H (0-2) /HPF Urine WBC 11-20 H (0-5) /HPF Ur Squamous Epith Cells 3-5 (0-2) /HPF Urine Bacteria None Seen (None Seen) Hyaline Casts 0-2 (0-2) /LPF Salicylates < 5.0 L < 5.0 L (15-30) mg/dL Acetaminophen < 3 < 3 (<30) mcg/mL Ethyl Alcohol 11 mg/dL Independent Interpretation I performed an independent interpretation of an: Ultrasound ( No cholelithiasis, mild hepatomegaly. ) and CT Scan ( abdomen and pelvis:Pancolonic submucosal fat deposition, nonspecific, however may be seen in the setting of inflammatory bowel disease.) Radiology Impression Discussion of test interpretation with radiology: I have reviewed the radiologist's reading. Medications Administered Generic Name Dose Route Start Last Admin Trade Name Freq PRN Reason Stop Dose Admin Enoxaparin Sodium 40 mg 10/21/25 22:15 10/21/25 23:42 Enoxaparin Sodium 40 Mg/0.4 Ml Syringe SUBCUT 40 mg Q24H LARISA Administration Acetylcysteine 20,000 mg/ 350 mls @ 87.5 mls/hr 10/22/25 03:00 10/21/25 23:36 Dextrose IV 10/22/25 06:59 87.5 mls/hr ONCE ONE Administration Sodium Chloride 3 ml 10/22/25 00:00 10/22/25 01:02 0.9 % Sodium Chloride Flush 3 Ml Syringe IVFLUSH Not Given QSHIFT LARISA Discontinued Medications Generic Name Dose Route Start Last Admin Trade Name Freq PRN Reason Stop Dose Admin Lactated Ringer's 1,000 mls @ 999 mls/hr 10/21/25 18:15 10/21/25 19:51 Lr IV 10/21/25 19:15 Infused .Q1H1M LARISA Infusion Iohexol 100 ml 10/21/25 19:46 10/21/25 19:46 Iohexol 350 Mg/Ml 100 Ml Infus..Btl IV 10/21/25 19:47 85 ml ONCE ONE Administration Discharge Plan Discharge Clinical Impression: Transaminitis Patient Disposition: Admitted As Inpatient Interventions: Admission Worksheet (ED) Last Done: 10/22/25 00:27
[2025-10-21] MEDS: Lactated Ringers 1,000 ML 999 ML IV (18:27)
[2025-10-21 18:35] LABS: Appearance Urine Clear; Glucose Urine UA Negative (Negative); PH 6.0 (5.0-9.0); Specific Gravity - Urine >= 1.030 (1.005-1.025); UMIC TRIGGER UACC YES
[2025-10-21 18:51] LABS: UACC Culture Trigger YES
[2025-10-21] MEDS: iohexoL 350 MG/ML 100 ML INFUS..BTL IV (19:46)
--- NOTE | 2025-10-21 20:03 | PC.NURSE ---
Assumedc care of pt, presents with abdominal pain that waxes and weans for past month, pt states that the pain comes in the morning, pt states that he has been moving his bowels, pain is mostly in the lower abd on the rightside, aaox4,
[2025-10-21 21:30] VITALS: BP 130/75; PULSE 62; RESP 20; TEMP 36.8; O2SAT 98
[2025-10-21 21:30] LABS: Acetaminophen LAB < 3 mcg/mL (<30); Salicylate < 5.0 mg/dL (15-30)
[2025-10-21 21:46] LABS: Acetaminophen LAB < 3 mcg/mL (<30); Salicylate < 5.0 mg/dL (15-30)
[2025-10-21 22:05] LABS: INTERNATIONAL NORM RATIO 1.3 (0.9-1.1); Prothrombin Time 15.4 SEC (11.2-13.5)
[2025-10-22] VITALS (7 sets, daily range): BP systolic 121–165; BP diastolic 66–94; PULSE 55–73; RESP 16–18; TEMP 36.4–37.1; O2SAT 96–100; BMI 34.5
--- NOTE | 2025-10-22 00:27 | HO.NURTONUR ---
25y Male, presented to the ED for right-side ABD pain x1 month, pt stated the pain would start in the mornings but subside as the day went on. Nausea/vomiting x2 days, pt states that he occasinally drinks, but not often, pt does have jaundice in his eyes, LFTs are highly elevated and pt is currently infusing Acetylcysteine, aaox4, nad,
[2025-10-22] MEDS: Acetylcysteine 10,000 MG in Dextrose 5 % 1,000 ML 65.63 MG IV (04:05)
--- NOTE | 2025-10-22 05:54 | PM.IMHP ---
History of Present Illness Date of Service: 10/21/25 Chief Complaint: Abdominal discomfort 26-year-old male with a past medical history of cannabis use; presented to the hospital with a chief complaint of abdominal complaint. Patient mentioned that for about a month he has not been feeling well. ; has been having intermittent episodes of abdominal pain diffuse in nature; has associated nausea and vomiting. Denies any diarrhea. Patient denies any alcohol use. Denies any illicit drug use except for cannabis use. Patient denies any recent travel or sick contacts. Denies using any herbal medicines. Review of all other systems is negative except mentioned above ER course: Per ER team, patient noted to have mild diffuse abdominal tenderness; CT and pelvis showed no acute intra-abdominal process; right upper quadrant ultrasound was negative. Liver enzymes elevated. Lipase within normal limits. T bili elevated. [facility] Medical History Patient denies medical problems Social History Household Members: Family Household Members Other:: mother Housing: Apartment Do you presently have visiting nurse or other home services: No Alcohol intake: current Alcohol intake frequency: a few times a month Alcohol type: beer Patient Tobacco Use Status: Current someday Tobacco user Tobacco use type: Cigarette Smoked in Last 30 Days: No e-Cigarette/Vaping Use: Currently Using Use of substances other than those prescribed or required for medical reasons: No Currently Displaying Signs/Symptoms of Drug Intoxication Withdrawal: No Have you been hit, kicked, punched, or otherwise hurt by someone within the past year? If so, by whom?: No Do you feel safe in your current relationship?: Yes Is there a partner from a previous relationship who is making you feel unsafe now?: No Are you made to feel afraid or neglected: No Advance Directives: No Advance Directives Information Provided: No Do you have a plan to hurt others: No Plan Recently lost weight without trying: Yes How much weight loss: 24-33 pounds Eating poorly because of decreased appetite: Yes Nutrition screen score: 6 Nutrition Risks: Anorexia Poor oral hygiene: No Meds Allergies Allergy/AdvReac Type Severity Reaction Status Date / Time No Known Allergies (No Known Allergy Verified 10/21/25 16:49 Allergies*) Active Medications: Current Medications Acetaminophen (Acetaminophen 325 Mg Tablet) 650 mg PO Q6H PRN PRN Reason: Pain, Mild 1-3,fever,headache Calcium Carbonate (Calcium Carbonate 750 Mg Tab.Chew) 750 mg PO Q4H PRN PRN Reason: Heartburn Enoxaparin Sodium (Enoxaparin Sodium 40 Mg/0.4 Ml Syringe) 40 mg SUBCUT Q24H [facility] Last Admin: 10/21/25 23:42 Dose: 40 mg Hydromorphone HCl (Hydromorphone Hcl 1 Mg/Ml Syringe) 0.5 mg IVPUSH Q4H PRN; Protocol PRN Reason: Pain, Severe (Pain Scale 7-10) Acetylcysteine 20,000 mg/ (Dextrose) 350 mls @ 87.5 mls/hr IV ONCE ONE Stop: 10/22/25 06:59 Last Infusion: 10/22/25 04:00 Dose: Infused Acetylcysteine 10,000 mg/ (Dextrose) 1,050 mls @ 65.625 mls/hr IV ONCE ONE Stop: 10/22/25 18:59 Last Admin: 10/22/25 04:05 Dose: 65.63 mls/hr Influenza Virus Vaccine (Flu Vacc [id number](6mo Up)/Pf 0.5 Ml Syringe) 0.5 ml IM .ONCE ONE Stop: 10/22/25 09:01 Magnesium Hydroxide (Milk Of Magnesia 30 Ml Oral.Susp) 30 ml PO DAILY PRN PRN Reason: Constipation Melatonin (Melatonin 3 Mg Tablet) 6 mg PO BEDTIME PRN PRN Reason: Insomnia Sodium Chloride (0.9 % Sodium Chloride Flush 3 Ml Syringe) 3 ml IVFLUSH QSHIFT [facility] Last Admin: 10/22/25 01:02 Dose: Not Given Physical Exam Vital Signs and Narrative: Vital Signs: Last Vital Signs Temp 98.6 F 10/22/25 03:27 Pulse 60 10/22/25 03:27 Resp 18 10/22/25 03:27 BP 151/89 H 10/22/25 03:27 Pulse Ox 99 10/22/25 03:27 O2 Del Method Room Air 10/22/25 03:27 BMI result Body Mass Index 34.5 Gen: Appears be in no acute distress HEENT: NCAT, Moist mucosa. Pulmonary: Vesicular breath sounds, fair air entry CVS: Normal S1-S2 Abdomen: BS+, Soft, mildly tender diffusely Extremities: Warm well perfused Neuro: Alert and awake. Results Labs 10/21/25 17:09 10/21/25 17:09 Labs: Laboratory Results - last 24 hr 10/21/25 10/21/25 10/21/25 17:09 18:24 21:21 MCV 88.2 MCH 29.8 MCHC 33.8 RDW 14.6 Plt Count 207 MPV 11.7 Immature Gran % (Auto) 0.5 H Neut % (Auto) 53.9 Lymph % (Auto) 28.8 [place] % (Auto) 14.2 H Eos % (Auto) 1.8 Baso % (Auto) 0.8 Lymph # (Auto) 1.7 [place] # (Auto) 0.9 Eos # (Auto) 0.1 Baso # (Auto) 0.1 Abs Immat Gran (auto) 0.03 Absolute Neuts (auto) 3.3 Absolute Nucleated RBC 0.000 Nucleated RBC % (auto) 0.0 PT 15.4 H INR 1.3 H Anion Gap 16 Estim Creat Clear Calc 155.4 Estimated GFR > 60 Random Glucose 85 Calcium 9.9 Total Bilirubin 11.8 H Direct Bilirubin 7.6 H AST 1160 H ALT 2528 H Alkaline Phosphatase 215 H Total Protein 7.5 Albumin 4.6 Lipase 10 Urine Color Dark Yellow Urine Appearance Clear Urine pH 6.0 Ur Specific [place] >= 1.030 H Urine Protein 30 (1+) H Urine Glucose (UA) Negative Urine Ketones Trace Urine Blood Negative Urine Nitrite Positive H Ur Leukocyte Esterase Moderate (2+) H Urine RBC 3-5 H Urine WBC 11-20 H Ur Squamous Epith Cells 3-5 Urine Bacteria None Seen Hyaline Casts 0-2 Salicylates < 5.0 L < 5.0 L Acetaminophen < 3 < 3 Ethyl Alcohol 11 Assessment and Plan (1) Transaminitis: Status: Acute Plan 26-year-old male with a past medical history of cannabis use; presented to the hospital with a chief complaint of abdominal discomfort. Noted acute liver failure Acute liver failure: Unclear etiology Patient mentating well. Denies any illicit drug use. Denies any Tylenol use. Alcohol level, salicylate level, Tylenol level negative. INR 1.3. CT abdomen pelvis showed no acute findings Right upper quadrant ultrasound negative Meld score 6 Acute viral panel negative Acute hepatitis panel pending EBV pending PHOEBE pending Gastroenterology consult was notified Trend liver enzymes Empirically started on N-acetylcysteine IV DVT prophylaxis: Lovenox Code status: Full code Quality Stroke Does the patient have a stroke diagnosis?: No VTE Prior VTE?: No VTE Risk Level:: Medical - moderate - high VTE Device Contraindication: Treatment Not Indicated VTE Drug Contraindication: N/A - Med Ordered
[2025-10-22 06:41] LABS: Hematocrit 45.3 % (42.0-52.0); Hemoglobin 15.5 g/dl (14.0-18.0); Mean Corpuscular HGB Conc 34.2 g/dl (31.0-36.0); Mean Corpuscular Hemoglobin 30.2 pg (27.0-33.0); Mean Corpuscular Volume 88.1 fL (80.0-98.0); NRBC Abs Auto 0.000 X10*3/uL (0.0-0.012); NRBC Pct Auto 0.0 /100WBC (0.0-0.2); Platelet Count 181 X10*3/uL (160-400); Red Blood Count 5.14 X10*6/uL (4.60-5.80); White Blood Count 6.3 X10*3/uL (4.8-10.8)
[2025-10-22 07:04] LABS: Albumin Level 3.8 g/dL (3.5-5.0); Alkaline Phosphatase 172 U/L (39-117); Anion Gap 16 (12-20); Aspartate Amino Transferase 935 U/L (5-37); Blood Urea Nitrogen 8 mg/dL (9-16); Calcium 9.2 mg/dL (8.4-10.2); Carbon Dioxide 23 mmol/L (22-29); Chloride 107 mmol/L (96-108); Creatinine Clr Calc Pharmacy 203.6; Estimated Glomerular Filt Rate > 60; Potassium 3.9 mmol/L (3.3-5.1); Sodium 142 mmol/L (135-145); Total Protein 6.4 g/dL (6.5-8.0)
[2025-10-22 07:18] LABS: Alanine Aminotransferase 2201 U/L (0-40)
--- NOTE | 2025-10-22 09:16 | PHA.MEDREC ---
Addendum entered by Osiel Bundy PharmD 10/22/25 09:23: reviewed Original Note: Pharmacy Consult ? Medication Reconciliation Pharmacy has completed the medication reconciliation. Confirmed list with patient and claims history. Patient claims they only take ibuprofen as needed for headaches and pain.
--- NOTE | 2025-10-22 09:16 | MHC.CM.PN ---
CM MET WITH PT AT BEDSIDE. PT LIVES WITH MOTHER, FUNCTIONALLY INDEPENDENT AND EMPLOYED F/T. NO SERVICES OR DME. PT DECLINES COMPLETING A HCP AT THIS TIME BUT WILL THINK ABOUT IT. NO PCP, [facility] PROVIDED. DP: HOME, NO SERVICES IS ANTICIPATED. PT MAY NEED ASSIST WITH A RIDE HOME. CM WILL CONTINUE TO FOLLOW FOR ANY CHANGE TO DC PLAN/NEEDS.
--- NOTE | 2025-10-22 12:50 | CONS_ITS ---
DATE OF SERVICE: 10/22/2025 REFERRING PHYSICIAN: Dr. Poe REASON FOR CONSULTATION: Elevated liver function tests. HISTORY OF PRESENT ILLNESS: The patient is a pleasant 25-year-old man who was admitted to the hospital after presenting to the emergency room yesterday with complaints of abdominal pain for 2 weeks, weakness, nausea, and some vomiting. He was evaluated in the emergency department after complaining of dark urine and yellow eyes and found to have jaundice. He does drink alcohol occasionally after using it heavily in the past. He uses marijuana on a daily basis, but does not use intravenous drugs. Evaluation in the Emergency Department was undertaken with abdominal ultrasound and CT scanning, both of which showed no liver abnormalities. Lab work was remarkable for elevations of his liver function tests, which have improved overnight. Further lab evaluation for salicylates and acetaminophen were negative. Ethyl alcohol level on admission was 11. Hepatitis and autoimmune markers are pending. The patient denies any prior history of liver disease. He states his alcohol use is fairly infrequent now compared to in the past when it was heavier. He has no ill contacts or unusual food ingestions. PAST MEDICAL HISTORY: He denies other medical or surgical illnesses. CURRENT MEDICATIONS: Current medication list is reviewed in the chart. ALLERGIES: THERE ARE NONE REPORTED. FAMILY HISTORY: This is negative for liver disease. SOCIAL HISTORY: Alcohol and marijuana use are described above. REVIEW OF SYSTEMS: SKIN: No pruritus. HEENT: Negative. CARDIOPULMONARY: No shortness of breath or chest pain. GASTROINTESTINAL: As above. GENITOURINARY: Negative. NEUROPSYCHIATRIC: Negative. PHYSICAL EXAMINATION: GENERAL: Shows a pleasant male, lying comfortably in bed. VITAL SIGNS: Reviewed in the electronic medical record and are stable. SKIN: Anicteric. HEENT: Shows mild scleral icterus. NECK: Without lymphadenopathy. LUNGS: Clear. HEART: Shows a regular rate and rhythm. S1, S2. No murmur. ABDOMEN: Soft without focal masses or tenderness. Bowel sounds are present. No organomegaly is noted. EXTREMITIES: Without edema. LABORATORY DATA AND IMAGING STUDIES: Reviewed. IMPRESSION: Jaundice. This may be due to drug use including possible contaminants, which could be in the patient's marijuana supply. I discussed this with him. He has been treated with acetylcysteine and liver test seemed to be improving. I would recommend monitoring liver profile and prothrombin/INR time. If he does eventually develop acute liver failure, he will need transfer to a tertiary care center, but this does not seem to be the case at this time. Thanks for asking me to see him. I will follow him in the hospital with you. MD KAVYA Leon/ADELA / [phone]
--- NOTE | 2025-10-22 13:40 | HO.PM.IMPN ---
Subjective Subjective Date of Service: 10/22/25 Interval History: Feels bloated but no significant abdominal pain Denies nausea, vomiting, diarrhea Reports stool has been harder and less regular than before Used to have BM every day, but for the last 3 weeks has been going every 2-3 days Reports some blood on toilet paper with wiping Denies any other substance use other than marijuana Review of Systems Review of Systems: Yes all other systems are reviewed and are negative Physical Exam Exam: Exam: General: AOx3, no acute distress Eyes: Sclera icteric Resp: CTA bilaterally CVS: S1, S2, RRR GI: +BS, NT, soft, no distention Skin: Warm, dry Neuro: Cranial nerves II-XII grossly intact bilaterally. Motor grossly intact bilaterally Extremities: No edema Psych: Appropriate affect Vital Signs: Vital Signs: Last Vital Signs Temp 98.4 F 10/22/25 11:29 Pulse 55 10/22/25 11:29 Resp 16 10/22/25 11:29 BP 121/66 10/22/25 11:29 Pulse Ox 98 10/22/25 11:29 O2 Del Method Room Air 10/22/25 11:29 BMI result Body Mass Index 34.5 Objective Data Active Medications Acetaminophen (Acetaminophen 325 Mg Tablet) 650 mg PO Q6H PRN PRN Reason: Pain, Mild 1-3,fever,headache Last Admin: 10/22/25 07:43 Dose: 650 mg Documented By: ANDREW Calcium Carbonate (Calcium Carbonate 750 Mg Tab.Chew) 750 mg PO Q4H PRN PRN Reason: Heartburn Enoxaparin Sodium (Enoxaparin Sodium 40 Mg/0.4 Ml Syringe) 40 mg SUBCUT Q24H [facility] Last Admin: 10/21/25 23:42 Dose: 40 mg Documented By: EDUARDO Hydromorphone HCl (Hydromorphone Hcl 1 Mg/Ml Syringe) 0.5 mg IVPUSH Q4H PRN; Protocol PRN Reason: Pain, Severe (Pain Scale 7-10) Acetylcysteine 10,000 mg/ (Dextrose) 1,050 mls @ 65.625 mls/hr IV ONCE ONE Stop: 10/22/25 18:59 Last Admin: 10/22/25 04:05 Dose: 65.63 mls/hr Documented By: HO.GORDNEK Comments: med late because med was not available on floor Magnesium Hydroxide (Milk Of Magnesia 30 Ml Oral.Susp) 30 ml PO DAILY PRN PRN Reason: Constipation Melatonin (Melatonin 3 Mg Tablet) 6 mg PO BEDTIME PRN PRN Reason: Insomnia Sodium Chloride (0.9 % Sodium Chloride Flush 3 Ml Syringe) 3 ml IVFLUSH QSHIFT [facility] Last Admin: 10/22/25 07:39 Dose: Not Given Documented By: ANDREW Non-Admin Reason: IV Running Labs 10/22/25 05:50 10/22/25 05:50 Labs: Laboratory Results - last 24 hr 10/21/25 10/21/25 10/21/25 17:09 18:24 21:21 MCV 88.2 MCH 29.8 MCHC 33.8 RDW 14.6 Plt Count 207 MPV 11.7 Immature Gran % (Auto) 0.5 H Neut % (Auto) 53.9 Lymph % (Auto) 28.8 [place] % (Auto) 14.2 H Eos % (Auto) 1.8 Baso % (Auto) 0.8 Lymph # (Auto) 1.7 [place] # (Auto) 0.9 Eos # (Auto) 0.1 Baso # (Auto) 0.1 Abs Immat Gran (auto) 0.03 Absolute Neuts (auto) 3.3 Absolute Nucleated RBC 0.000 Nucleated RBC % (auto) 0.0 PT 15.4 H INR 1.3 H Anion Gap 16 Estim Creat Clear Calc 155.4 Estimated GFR > 60 Random Glucose 85 Calcium 9.9 Total Bilirubin 11.8 H Direct Bilirubin 7.6 H AST 1160 H ALT 2528 H Alkaline Phosphatase 215 H Total Protein 7.5 Albumin 4.6 Lipase 10 Urine Color Dark Yellow Urine Appearance Clear Urine pH 6.0 Ur Specific [place] >= 1.030 H Urine Protein 30 (1+) H Urine Glucose (UA) Negative Urine Ketones Trace Urine Blood Negative Urine Nitrite Positive H Ur Leukocyte Esterase Moderate (2+) H Urine RBC 3-5 H Urine WBC 11-20 H Ur Squamous Epith Cells 3-5 Urine Bacteria None Seen Hyaline Casts 0-2 Salicylates < 5.0 L < 5.0 L Acetaminophen < 3 < 3 Ethyl Alcohol 11 10/22/25 05:50 MCV 88.1 MCH 30.2 MCHC 34.2 RDW 14.5 Plt Count 181 MPV 11.6 Immature Gran % (Auto) Neut % (Auto) Lymph % (Auto) [place] % (Auto) Eos % (Auto) Baso % (Auto) Lymph # (Auto) [place] # (Auto) Eos # (Auto) Baso # (Auto) Abs Immat Gran (auto) Absolute Neuts (auto) Absolute Nucleated RBC 0.000 Nucleated RBC % (auto) 0.0 PT INR Anion Gap 16 Estim Creat Clear Calc 203.6 Estimated GFR > 60 Random Glucose 90 Calcium 9.2 D Total Bilirubin 10.7 H Direct Bilirubin AST 935 H ALT 2201 H Alkaline Phosphatase 172 H Total Protein 6.4 L Albumin 3.8 Lipase Urine Color Urine Appearance Urine pH Ur Specific [place] Urine Protein Urine Glucose (UA) Urine Ketones Urine Blood Urine Nitrite Ur Leukocyte Esterase Urine RBC Urine WBC Ur Squamous Epith Cells Urine Bacteria Hyaline Casts Salicylates Acetaminophen Ethyl Alcohol Microbiology Microbiology Results: Microbiology 10/21/25 18:24 Urine Culture - Preliminary Urine clean catch - Clean Catch Midstream No growth to date. Assessment and Plan (1) Transaminitis: Status: Acute Plan 26-year-old male with a past medical history of cannabis use; presented to the hospital with a chief complaint of abdominal discomfort. Noted acute liver failure Transaminitis Unclear etiology Patient mentating well. Denies any illicit drug use, no IVDU. Denies any Tylenol use. Alcohol level, salicylate level, Tylenol level negative. INR 1.3. CT abdomen pelvis showed no acute findings Right upper quadrant ultrasound negative Meld score 6 Acute resp viral panel negative Acute hepatitis panel, EBV, PHOEBE, HIV, syphilis, gonorrhea/chlamydia pending Gastroenterology consulted, think possibly secondary to contaminant inpatients marijuana supply Trend liver enzymes, PT/INR Empirically started on N-acetylcysteine IV DVT prophylaxis: Lovenox Code status: Full code Quality Stroke Does the patient have a stroke diagnosis?: No VTE Prior VTE?: No VTE Risk Level:: Medical - moderate - high VTE Device Contraindication: Treatment Not Indicated VTE Drug Contraindication: N/A - Med Ordered
[2025-10-23] VITALS (7 sets, daily range): BP systolic 111–144; BP diastolic 55–77; PULSE 55–89; RESP 16–18; TEMP 36–36.6; O2SAT 93–99
[2025-10-23 00:26] LABS: CT PCR Urine NOT DETECTED (Not Detect.); NG PCR Urine NOT DETECTED (Not Detect.)
[2025-10-23 04:50] LABS: HIV Num 1 0.06 S/CO (0.00-0.99)
[2025-10-23 04:53] LABS: HBS Num1 0.00 mIU/mL (0-7.99); HBc Num1 0.15 S/CO (0.00-0.79); HBsAGNum1 0.40 S/CO (0.00-0.99); Hepatitis A Antibody IgM 0.22 Index (0-0.79); Hepatitis B Surface Antigen Negative (Negative); ~HepC Num1 0.62 S/CO (0.00-0.79); ~Hepatitis A Antibody IgM Nonreactive (Nonreactive); ~Hepatitis B Surface Antibody NONREACTIVE (Nonreactive); ~Hepatitis C Antibody Nonreactive (Nonreactive)
[2025-10-23 04:54] LABS: Syphilis Screen Nonreactive (Nonreactive)
[2025-10-23 06:48] LABS: INTERNATIONAL NORM RATIO 1.2 (0.9-1.1); Prothrombin Time 14.7 SEC (11.2-13.5)
[2025-10-23 07:07] LABS: Albumin Level 3.9 g/dL (3.5-5.0); Alkaline Phosphatase 181 U/L (39-117); Anion Gap 11 (12-20); Aspartate Amino Transferase 1022 U/L (5-37); Blood Urea Nitrogen 6 mg/dL (9-16); Calcium 9.5 mg/dL (8.4-10.2); Carbon Dioxide 24 mmol/L (22-29); Chloride 109 mmol/L (96-108); Creatinine Clr Calc Pharmacy 200.5; Estimated Glomerular Filt Rate > 60; Potassium 4.1 mmol/L (3.3-5.1); Sodium 140 mmol/L (135-145); Total Protein 6.6 g/dL (6.5-8.0)
[2025-10-23 07:22] LABS: Alanine Aminotransferase 2175 U/L (0-40)
--- NOTE | 2025-10-23 07:38 | P.PNIM_ITS ---
Subjective Subjective Date of Service: 10/23/25 Interval History: Continue trending LFTs Patient is bilirubinemia and LFTs slightly up trending Patient states ?I have dark urine compared to yesterday? Physical Exam 2 Exam: Exam: General: AOx3, no acute distress Eyes: Sclera icteric Resp: CTA bilaterally CVS: S1, S2, RRR GI: Mild right upper quadrant tenderness, hepatomegaly Neuro: Cranial nerves II-XII grossly intact bilaterally. Motor grossly intact bilaterally Psych: Appropriate affect Vital Signs: Vital Signs: Last Vital Signs Temp 97.7 F 10/23/25 07:01 Pulse 77 10/23/25 07:01 Resp 18 10/23/25 07:01 BP 144/77 H 10/23/25 07:01 Pulse Ox 98 10/23/25 07:01 O2 Del Method Room Air 10/23/25 07:01 BMI result Body Mass Index 34.5 Objective Data Active Medications Acetaminophen (Acetaminophen 325 Mg Tablet) 650 mg PO Q6H PRN PRN Reason: Pain, Mild 1-3,fever,headache Last Admin: 10/22/25 07:43 Dose: 650 mg Documented By: ANDREW Calcium Carbonate (Calcium Carbonate 750 Mg Tab.Chew) 750 mg PO Q4H PRN PRN Reason: Heartburn Enoxaparin Sodium (Enoxaparin Sodium 40 Mg/0.4 Ml Syringe) 40 mg SUBCUT Q24H [facility] Last Admin: 10/22/25 22:56 Dose: Not Given Documented By: ADRIEN Non-Admin Reason: Patient Refused Hydromorphone HCl (Hydromorphone Hcl 1 Mg/Ml Syringe) 0.5 mg IVPUSH Q4H PRN; Protocol PRN Reason: Pain, Severe (Pain Scale 7-10) Magnesium Hydroxide (Milk Of Magnesia 30 Ml Oral.Susp) 30 ml PO DAILY PRN PRN Reason: Constipation Melatonin (Melatonin 3 Mg Tablet) 6 mg PO BEDTIME PRN PRN Reason: Insomnia Sodium Chloride (0.9 % Sodium Chloride Flush 3 Ml Syringe) 3 ml IVFLUSH QSHIFT [facility] Last Admin: 10/23/25 00:16 Dose: Not Given Documented By: ADRIEN Non-Admin Reason: IV Running Labs 10/22/25 05:50 10/23/25 06:27 Labs: Laboratory Results - last 24 hr 10/21/25 10/22/25 10/22/25 18:24 17:34 18:15 PT INR Anion Gap Estim Creat Clear Calc Estimated GFR Random Glucose Calcium Total Bilirubin AST ALT Alkaline Phosphatase Total Protein Albumin Ur N gonorrhoeae DNA (PCR) NOT DETECTED T.pallidum Ab (EIA) Nonreactive Ur Chlamydia DNA (PCR) NOT DETECTED Hepatitis A IgM Ab Nonreactive Hep Bs Antigen Negative Hep Bs Antibody NONREACTIVE Hep B Core Total Ab Nonreactive Hepatitis C Ab (EIA) Nonreactive HIV 1&2 Ab/P24 Ag 4thGn Nonreactive 10/23/25 06:27 PT 14.7 H INR 1.2 H Anion Gap 11 L Estim Creat Clear Calc 200.5 Estimated GFR > 60 Random Glucose 78 Calcium 9.5 Total Bilirubin 13.1 H AST 1022 H ALT 2175 H Alkaline Phosphatase 181 H Total Protein 6.6 Albumin 3.9 Ur N gonorrhoeae DNA (PCR) T.pallidum Ab (EIA) Ur Chlamydia DNA (PCR) Hepatitis A IgM Ab Hep Bs Antigen Hep Bs Antibody Hep B Core Total Ab Hepatitis C Ab (EIA) HIV 1&2 Ab/P24 Ag 4thGn Microbiology Microbiology Results: Microbiology 10/21/25 18:24 Urine Culture - Preliminary Urine clean catch - Clean Catch Midstream No growth to date. Assessment and Plan (1) Transaminitis: Status: Acute Plan 26-year-old male with a past medical history of cannabis use; presented to the hospital with a chief complaint of abdominal discomfort. Noted acute liver failure Transaminitis Unclear etiology possibly secondary to contamination with marijuana, other [id number] meds Synthetic function appears intact We will continue to trend LFTs INR daily Completed treatment for possible Tylenol toxicity with NS at dialysis team Workup for any tox screen negative Acute resp viral panel negative Acute hepatitis panel, EBV, PHOEBE, HIV, syphilis, gonorrhea/chlamydia pending Gastroenterology consulted, think possibly secondary to contaminant inpatients marijuana supply Trend liver enzymes, PT/INR DVT prophylaxis: Lovenox Code status: Full code This note is constructed using voice recognition software. While every effort has been made to ensure accuracy, pattern grader cutter errors may have been included. Quality Stroke Does the patient have a stroke diagnosis?: No VTE Prior VTE?: No VTE Risk Level:: Medical - moderate - high VTE Device Contraindication: Treatment Not Indicated VTE Drug Contraindication: N/A - Med Ordered
--- NOTE | 2025-10-23 09:30 | MHC.CLN ---
CONSULT REPORTED ANOREXIA AND WEIGHT LOSS. REVIEW OF WEIGHT HX SHOWS WEIGHT STABLE X 6 MONTHS. DIET RX: REGULAR. BMI 34.5, OBESE. NO NEW NUTRITION INTERVENTIONS AT THIS TIME. RD TO MONITOR WEEKLY.
[2025-10-23] MEDS: 0.9 % Sodium Chloride Flush 3 ML SYRINGE IVFLUSH ×3 (09:35→20:15)
--- NOTE | 2025-10-23 14:04 | P.PNGI_ITS ---
Subjective Subjective Date of Service: 10/23/25 Interval History: feels ok Critical Care Time (minutes): 0 Physical Exam 2 Vital Signs: Vital Signs: Last Vital Signs Temp 97.5 F 10/23/25 11:27 Pulse 83 10/23/25 11:27 Resp 18 10/23/25 11:27 BP 137/73 10/23/25 11:27 Pulse Ox 98 10/23/25 11:27 O2 Del Method Room Air 10/23/25 11:27 BMI result Body Mass Index 34.5 GI: Other: abdomen is soft and nontender Objective Data Labs 10/22/25 05:50 10/23/25 06:27 Labs: Laboratory Results - last 24 hr 10/21/25 10/22/25 10/22/25 18:24 17:34 18:15 PT INR Sodium Potassium Chloride Carbon Dioxide Anion Gap BUN Creatinine Estim Creat Clear Calc Estimated GFR Random Glucose Calcium Total Bilirubin AST ALT Alkaline Phosphatase Total Protein Albumin Ur N gonorrhoeae DNA (PCR) NOT DETECTED T.pallidum Ab (EIA) Nonreactive Ur Chlamydia DNA (PCR) NOT DETECTED Hepatitis A IgM Ab Nonreactive Hep Bs Antigen Negative Hep Bs Antibody NONREACTIVE Hep B Core Total Ab Nonreactive Hepatitis C Ab (EIA) Nonreactive HIV 1&2 Ab/P24 Ag 4thGn Nonreactive 10/23/25 06:27 PT 14.7 H INR 1.2 H Sodium 140 Potassium 4.1 Chloride 109 H Carbon Dioxide 24 Anion Gap 11 L BUN 6 L Creatinine 0.66 Estim Creat Clear Calc 200.5 Estimated GFR > 60 Random Glucose 78 Calcium 9.5 Total Bilirubin 13.1 H AST 1022 H ALT 2175 H Alkaline Phosphatase 181 H Total Protein 6.6 Albumin 3.9 Ur N gonorrhoeae DNA (PCR) T.pallidum Ab (EIA) Ur Chlamydia DNA (PCR) Hepatitis A IgM Ab Hep Bs Antigen Hep Bs Antibody Hep B Core Total Ab Hepatitis C Ab (EIA) HIV 1&2 Ab/P24 Ag 4thGn Microbiology Microbiology Results: Microbiology 10/21/25 18:24 Urine clean catch - Clean Catch Midstream Urine Culture - Final No growth. Procedures Date of Service Date of Service: 10/23/25 Progress Note: A&P Assessment and plan (1) Transaminitis: Status: Acute Assessment and Plan: labs reviewed with patient and mother continue monitoring pt/inr is stable. Time Spent With Patient Time: Total time managing care of this patient today ____ minutes. Quality Stroke Does the patient have a stroke diagnosis?: No VTE Prior VTE?: No VTE Risk Level:: Medical - moderate - high VTE Device Contraindication: Treatment Not Indicated VTE Drug Contraindication: N/A - Med Ordered
--- NOTE | 2025-10-23 14:54 | MHC.CM.PN ---
PER MD ROUNDS, PT WILL LIKELY BE MEDICALLY CLEARED TO DC IN 1-2 DAYS
--- NOTE | 2025-10-23 16:13 | PC.NURSE ---
Patient reported missing Iphone to MANUFACTURERS REPRESENTATIVE ,RN was not notified.Patient stated he asked for bed linen to be changed and after MANUFACTURERS REPRESENTATIVE changed linen phone was missing,checked room,kitchen was called,laundry contacted.unable to find patient phone.
--- NOTE | 2025-10-24 00:28 | PC.NURSE ---
IV leaking, removed. Patient states does not want another IV access at this time assuming he is going home today. Has nothing scheduled IV. [facility].
[2025-10-24 03:50] VITALS: BP 107/54; PULSE 69; RESP 16; TEMP 36; O2SAT 98
[2025-10-24 06:10] LABS: INTERNATIONAL NORM RATIO 1.1 (0.9-1.1); Prothrombin Time 13.9 SEC (11.2-13.5)
[2025-10-24 06:31] LABS: Albumin Level 3.7 g/dL (3.5-5.0); Alkaline Phosphatase 182 U/L (39-117); Anion Gap 12 (12-20); Aspartate Amino Transferase 987 U/L (5-37); Blood Urea Nitrogen 11 mg/dL (9-16); Calcium 9.2 mg/dL (8.4-10.2); Carbon Dioxide 26 mmol/L (22-29); Chloride 106 mmol/L (96-108); Creatinine Clr Calc Pharmacy 189.0; Estimated Glomerular Filt Rate > 60; Potassium 3.6 mmol/L (3.3-5.1); Sodium 140 mmol/L (135-145); Total Protein 6.2 g/dL (6.5-8.0)
[2025-10-24 06:49] LABS: Alanine Aminotransferase 2064 U/L (0-40)
--- NOTE | 2025-10-24 07:51 | HO.PM.IMPN ---
Subjective Subjective Date of Service: 10/24/25 Interval History: LFTs downtrending, T bili slightly lower compared to yesterday Review of Systems Review of Systems: Yes all other systems are reviewed and are negative Physical Exam Vital Signs: Vital Signs: Last Vital Signs Temp 96.8 F 10/24/25 03:50 Pulse 69 10/24/25 03:50 Resp 16 10/24/25 03:50 BP 107/54 L 10/24/25 03:50 Pulse Ox 98 10/24/25 03:50 O2 Del Method Room Air 10/24/25 03:50 BMI result Body Mass Index 34.5 Objective Data Active Medications Calcium Carbonate (Calcium Carbonate 750 Mg Tab.Chew) 750 mg PO Q4H PRN PRN Reason: Heartburn Enoxaparin Sodium (Enoxaparin Sodium 40 Mg/0.4 Ml Syringe) 40 mg SUBCUT Q24H [facility] Last Admin: 10/23/25 22:53 Dose: Not Given Documented By: ADRIEN Non-Admin Reason: Patient Refused Hydromorphone HCl (Hydromorphone Hcl 1 Mg/Ml Syringe) 0.5 mg IVPUSH Q4H PRN; Protocol PRN Reason: Pain, Severe (Pain Scale 7-10) Magnesium Hydroxide (Milk Of Magnesia 30 Ml Oral.Susp) 30 ml PO DAILY PRN PRN Reason: Constipation Melatonin (Melatonin 3 Mg Tablet) 6 mg PO BEDTIME PRN PRN Reason: Insomnia Nicotine Polacrilex (Nicotine Polacrilex 2 Mg Gum) 2 mg BUCCAL Q2H PRN PRN Reason: Nicotine Cravings Last Admin: 10/23/25 10:20 Dose: 2 mg Documented By: LARS Sodium Chloride (0.9 % Sodium Chloride Flush 3 Ml Syringe) 3 ml IVFLUSH QSHIFT [facility] Last Admin: 10/24/25 07:46 Dose: Not Given Documented By: TRACEE Non-Admin Reason: Previously Administered Labs 10/22/25 05:50 10/24/25 05:17 Labs: Laboratory Results - last 24 hr 10/24/25 05:17 Hold Purple Top SEE NOTE PT 13.9 H INR 1.1 Anion Gap 12 Estim Creat Clear Calc 189.0 Estimated GFR > 60 Random Glucose 96 Calcium 9.2 Total Bilirubin 9.6 H AST 987 H ALT 2064 H Alkaline Phosphatase 182 H Total Protein 6.2 L Albumin 3.7 Microbiology Microbiology Results: Microbiology 10/21/25 18:24 Urine Culture - Final Urine clean catch - Clean Catch Midstream No growth. Assessment and Plan (1) Transaminitis: Status: Acute Plan 26-year-old male with a past medical history of cannabis use; presented to the hospital with a chief complaint of abdominal discomfort. Noted acute liver failure Transaminitis - waxing waning - possibly secondary to contamination with marijuana, other youm-mip-wuhnhma meds Synthetic function appears intact-We will continue to trend LFTs INR daily Completed treatment for possible Tylenol toxicity with N-acetylcysteine on admission Workup for any tox screen negative Acute resp viral panel negative Acute hepatitis panel, EBV, PHOEBE, HIV, syphilis, gonorrhea/chlamydia pending Gastroenterology consulted, think possibly secondary to contaminant inpatients marijuana supply DVT prophylaxis: Lovenox Code status: Full code This note is constructed using voice recognition software. While every effort has been made to ensure accuracy, slip feeder errors may have been included. Quality Stroke Does the patient have a stroke diagnosis?: No VTE Prior VTE?: No VTE Risk Level:: Medical - moderate - high VTE Device Contraindication: Treatment Not Indicated VTE Drug Contraindication: N/A - Med Ordered
[2025-10-24 08:00] VITALS: BP 118/58; PULSE 52; RESP 16; TEMP 36.9; O2SAT 100
[2025-10-24 11:40] VITALS: BP 121/67; PULSE 64; RESP 16; TEMP 36.1; O2SAT 98
[2025-10-24 15:14] VITALS: BP 109/50; PULSE 52; RESP 18; TEMP 36.4; O2SAT 100
[2025-10-24 19:26] VITALS: BP 133/76; PULSE 57; RESP 18; TEMP 36.6; O2SAT 99
[2025-10-24 23:37] VITALS: BP 115/53; PULSE 53; RESP 14; TEMP 36.2; O2SAT 99
[2025-10-25 02:59] VITALS: BP 115/56; PULSE 70; RESP 14; TEMP 36.2; O2SAT 99
[2025-10-25 06:01] LABS: INTERNATIONAL NORM RATIO 1.2 (0.9-1.1); Prothrombin Time 14.1 SEC (11.2-13.5)
[2025-10-25 06:13] LABS: Albumin Level 3.8 g/dL (3.5-5.0); Alkaline Phosphatase 180 U/L (39-117); Anion Gap 12 (12-20); Aspartate Amino Transferase 1335 U/L (5-37); Blood Urea Nitrogen 10 mg/dL (9-16); Calcium 9.5 mg/dL (8.4-10.2); Carbon Dioxide 24 mmol/L (22-29); Chloride 108 mmol/L (96-108); Creatinine Clr Calc Pharmacy 176.4; Estimated Glomerular Filt Rate > 60; Potassium 4.1 mmol/L (3.3-5.1); Sodium 140 mmol/L (135-145); Total Protein 6.5 g/dL (6.5-8.0)
[2025-10-25 06:23] LABS: Alanine Aminotransferase 2412 U/L (0-40)
[2025-10-25 07:42] VITALS: BP 109/60; PULSE 55; RESP 16; TEMP 36.4; O2SAT 99
--- NOTE | 2025-10-25 07:54 | P.PNIM_ITS ---
Subjective Subjective Date of Service: 10/25/25 Review of Systems Review of Systems: Yes all other systems are reviewed and are negative Physical Exam 2 Exam: Exam: General: AOx3, no acute distress, was sleeping when I saw the patient this a.m. Eyes: Sclera icteric Resp: CTA bilaterally CVS: S1, S2, RRR GI: Mild right upper quadrant tenderness, hepatomegaly Neuro: Cranial nerves II-XII grossly intact bilaterally. Motor grossly intact bilaterally Psych: Appropriate affect Vital Signs: Vital Signs: Last Vital Signs Temp 97.6 F 10/25/25 07:42 Pulse 55 10/25/25 07:42 Resp 16 10/25/25 07:42 BP 109/60 10/25/25 07:42 Pulse Ox 99 10/25/25 07:42 O2 Del Method Room Air 10/25/25 07:42 BMI result Body Mass Index 34.5 Objective Data Active Medications Calcium Carbonate (Calcium Carbonate 750 Mg Tab.Chew) 750 mg PO Q4H PRN PRN Reason: Heartburn Enoxaparin Sodium (Enoxaparin Sodium 40 Mg/0.4 Ml Syringe) 40 mg SUBCUT Q24H [facility] Last Admin: 10/24/25 22:22 Dose: Not Given Documented By: ROSETTA Non-Admin Reason: Patient Refused Comments: Patient does not want blood thinner, he feels he does not need it. Educated him on the importance of frequently moving his body to promote blood flow. Hydromorphone HCl (Hydromorphone Hcl 1 Mg/Ml Syringe) 0.5 mg IVPUSH Q4H PRN; Protocol PRN Reason: Pain, Severe (Pain Scale 7-10) Magnesium Hydroxide (Milk Of Magnesia 30 Ml Oral.Susp) 30 ml PO DAILY PRN PRN Reason: Constipation Melatonin (Melatonin 3 Mg Tablet) 6 mg PO BEDTIME PRN PRN Reason: Insomnia Nicotine Polacrilex (Nicotine Polacrilex 2 Mg Gum) 2 mg BUCCAL Q2H PRN PRN Reason: Nicotine Cravings Last Admin: 10/23/25 10:20 Dose: 2 mg Documented By: LARS Sodium Chloride (0.9 % Sodium Chloride Flush 3 Ml Syringe) 3 ml IVFLUSH QSHIFT [facility] Last Admin: 10/25/25 07:51 Dose: Not Given Documented By: MELLY Non-Admin Reason: No Access Labs 10/22/25 05:50 10/25/25 05:26 Labs: Laboratory Results - last 24 hr 10/25/25 05:26 Hold Purple Top SEE NOTE PT 14.1 H INR 1.2 H Anion Gap 12 Estim Creat Clear Calc 176.4 Estimated GFR > 60 Random Glucose 78 Calcium 9.5 Total Bilirubin 9.8 H AST 1335 H ALT 2412 H Alkaline Phosphatase 180 H Total Protein 6.5 Albumin 3.8 Assessment and Plan (1) Transaminitis: Status: Acute Plan 26-year-old male with a past medical history of cannabis use; presented to the hospital with a chief complaint of abdominal discomfort. Noted acute liver failure Transaminitis - waxing waning - possibly secondary to contamination with marijuana, other myyf-itc-[id number] meds Synthetic function appears intact-We will continue to trend LFTs INR daily s/p treatment for possible Tylenol toxicity with N-acetylcysteine on admission Workup for any tox screen negative, Acute resp viral panel negative, Acute hepatitis panel, EBV, PHOEBE, HIV, syphilis, gonorrhea/chlamydia pending Per GI think possibly secondary to contaminant inpatients marijuana supply - OP close f/up with frequent labs DVT prophylaxis: Lovenox Code status: Full code Patient likely to be discharged tomorrow if labs continue to wax and wane- independent at baseline and will be discharged home This note is constructed using voice recognition software. While every effort has been made to ensure accuracy, buttonhole tacker errors may have been included. Quality Stroke Does the patient have a stroke diagnosis?: No VTE Prior VTE?: No VTE Risk Level:: Medical - moderate - high VTE Device Contraindication: Treatment Not Indicated VTE Drug Contraindication: N/A - Med Ordered
[2025-10-25 11:21] VITALS: BP 117/58; PULSE 56; RESP 16; TEMP 36.6; O2SAT 99
--- NOTE | 2025-10-25 14:33 | MHC.CM.PN ---
per rounds pt expected to d plan remani s home n/s
[2025-10-25 15:20] VITALS: BP 113/54; PULSE 52; RESP 18; TEMP 36.8; O2SAT 99
[2025-10-25 17:58] LABS: EBV DNA PCR Not Detected (Not Detected)
[2025-10-25 19:05] VITALS: BP 109/55; PULSE 67; RESP 18; TEMP 36.7; O2SAT 98
[2025-10-25 23:29] VITALS: BP 97/51; PULSE 57; RESP 14; TEMP 36.1; O2SAT 98
[2025-10-26 03:59] VITALS: BP 124/58; PULSE 51; RESP 14; TEMP 36; O2SAT 100
--- NOTE | 2025-10-26 07:21 | P.PNIM_ITS ---
Subjective Subjective Date of Service: 10/26/25 Physical Exam 2 Vital Signs: Vital Signs: Last Vital Signs Temp 96.8 F 10/26/25 03:59 Pulse 51 10/26/25 03:59 Resp 14 10/26/25 03:59 BP 124/58 L 10/26/25 03:59 Pulse Ox 100 10/26/25 03:59 O2 Del Method Room Air 10/26/25 03:59 BMI result Body Mass Index 34.5 Objective Data Active Medications Calcium Carbonate (Calcium Carbonate 750 Mg Tab.Chew) 750 mg PO Q4H PRN PRN Reason: Heartburn Enoxaparin Sodium (Enoxaparin Sodium 40 Mg/0.4 Ml Syringe) 40 mg SUBCUT Q24H [facility] Last Admin: 10/25/25 22:04 Dose: Not Given Documented By: ROSETTA Non-Admin Reason: Patient Refused Comments: Patient does not think he needs a blood thinner and does not want to take this medication. Educated patient on importance of frequently moving to promote adequate blood flow throughout body. Hydromorphone HCl (Hydromorphone Hcl 1 Mg/Ml Syringe) 0.5 mg IVPUSH Q4H PRN; Protocol PRN Reason: Pain, Severe (Pain Scale 7-10) Magnesium Hydroxide (Milk Of Magnesia 30 Ml Oral.Susp) 30 ml PO DAILY PRN PRN Reason: Constipation Melatonin (Melatonin 3 Mg Tablet) 6 mg PO BEDTIME PRN PRN Reason: Insomnia Nicotine Polacrilex (Nicotine Polacrilex 2 Mg Gum) 2 mg BUCCAL Q2H PRN PRN Reason: Nicotine Cravings Last Admin: 10/23/25 10:20 Dose: 2 mg Documented By: LARS Sodium Chloride (0.9 % Sodium Chloride Flush 3 Ml Syringe) 3 ml IVFLUSH QSHIFT [facility] Last Admin: 10/25/25 22:30 Dose: Not Given Documented By: ROSETTA Non-Admin Reason: No Access Labs 10/22/25 05:50 10/25/25 05:26 Labs: Laboratory Results - last 24 hr 10/22/25 06:04 EBV Source Whole Blood EBV DNA (PCR) Not Detected Quality Stroke Does the patient have a stroke diagnosis?: No VTE Prior VTE?: No VTE Risk Level:: Medical - moderate - high VTE Device Contraindication: Treatment Not Indicated VTE Drug Contraindication: N/A - Med Ordered
[2025-10-26 07:59] VITALS: BP 114/60; PULSE 52; RESP 16; TEMP 36.6; O2SAT 99
[2025-10-26 09:46] LABS: Albumin Level 4.4 g/dL (3.5-5.0); Alkaline Phosphatase 209 U/L (39-117); Anion Gap 14 (12-20); Aspartate Amino Transferase 1557 U/L (5-37); Blood Urea Nitrogen 10 mg/dL (9-16); Calcium 9.9 mg/dL (8.4-10.2); Carbon Dioxide 22 mmol/L (22-29); Chloride 107 mmol/L (96-108); Creatinine Clr Calc Pharmacy 181.3; Estimated Glomerular Filt Rate > 60; Potassium 4.3 mmol/L (3.3-5.1); Sodium 139 mmol/L (135-145); Total Protein 7.6 g/dL (6.5-8.0)
[2025-10-26 09:57] LABS: Alanine Aminotransferase 2843 U/L (0-40)
--- NOTE | 2025-10-26 10:33 | PM.DS ---
DS: Providers Provider Date of Service: 10/26/25 Date of admission: 10/21/25 22:15 Date of discharge: 10/26/25 Primary care physician: None Physician Consults: 10/21/25 22:15 Consult to Gastroenterology Routine Consulting Provider: [facility] G[facility]ology Services Reason for consultation: liver failure DS: Diagnosis Discharge Diagnosis (1) Transaminitis: Status: Acute DS: Summary Hospital Course Hospital Course: H&P: Chief Complaint: Abdominal discomfort 26-year-old male with a past medical history of cannabis use; presented to the hospital with a chief complaint of abdominal complaint. Patient mentioned that for about a month he has not been feeling well. ; has been having intermittent episodes of abdominal pain diffuse in nature; has associated nausea and vomiting. Denies any diarrhea. Patient denies any alcohol use. Denies any illicit drug use except for cannabis use. Patient denies any recent travel or sick contacts. Denies using any herbal medicines. Review of all other systems is negative except mentioned above ER course: Per ER team, patient noted to have mild diffuse abdominal tenderness; CT and pelvis showed no acute intra-abdominal process; right upper quadrant ultrasound was negative. Liver enzymes elevated. Lipase within normal limits. T bili elevated. Hospital course: Transaminitis - waxing waning - possibly secondary to contamination with marijuana, Synthetic function appears intact s/p treatment for possible Tylenol toxicity with N-acetylcysteine on admission Workup for any tox screen negative, Acute resp viral panel negative, Acute hepatitis panel, EBV, PHOEBE, HIV, syphilis, gonorrhea/chlamydia pending Per GI think possibly secondary to contaminant inpatients marijuana supply - OP close f/up with frequent labs which Dr. Avila's office is going to follow Detail instructions given to the patient regarding when to seek care and strictly refrain from any further ingestion and come back to the ED if he notices any warning symptoms. DVT prophylaxis: Lovenox while inpatient Code status: Full code Patient appears to have waxing waning transaminitis, consulted GI physician and literature https://pmc.ncbi.nlm.nih.gov/articles/VRF3865483/ https://journals.lww.com/ajg/fulltext/2020/20419/acg_clinical_guideline__diagnosis_and_management.13.aspx We can follow outpatient and serial labs CMP and LFTs have been ordered which is essentially what we were doing inpatient anyways. Patient is eager to be discharged and is aware when to seek care if transaminitis worsens or does not resolve. Patient was deemed appropriate for discharge with very close follow up with PCP and GI This note is constructed using voice recognition software. While every effort has been made to ensure accuracy, improvement specialist errors may have been included. Time spent discussing smoking cessation with patient: more than 10 minutes Status at Discharge Functional status at discharge: independent ambulation Overall status at discharge: patient is back to baseline Time Attestation Discharge Coordination Time (in mins): 65 Quality: Safe Use of Opioids Does Pt have an Active Cancer Diagnosis on the Problem List?: No Quality: Stroke Does the patient have a stroke diagnosis?: No Physical Exam Exam: Exam: General: AOx3, no acute distress, was sleeping when I saw the patient this a.m. Eyes: Sclera icteric Resp: CTA bilaterally CVS: S1, S2, RRR GI: Mild right upper quadrant tenderness, hepatomegaly Neuro: Cranial nerves II-XII grossly intact bilaterally. Motor grossly intact bilaterally Psych: Appropriate affect Vital Signs: Vital Signs: Last Vital Signs Temp 97.8 F 10/26/25 07:59 Pulse 52 10/26/25 07:59 Resp 16 10/26/25 07:59 BP 114/60 10/26/25 07:59 Pulse Ox 99 10/26/25 07:59 O2 Del Method Room Air 10/26/25 07:59 BMI result Body Mass Index 34.5 DS: Data Data Completed and Pending Labs on day of discharge: Laboratory Results - last 24 hr 10/22/25 10/26/25 06:04 08:40 Hold Purple Top SEE NOTE Sodium 139 Potassium 4.3 Chloride 107 Carbon Dioxide 22 Anion Gap 14 BUN 10 Creatinine 0.73 Estim Creat Clear Calc 181.3 Estimated GFR > 60 Random Glucose 85 Calcium 9.9 Total Bilirubin 11.1 H AST 1557 H ALT 2843 H Alkaline Phosphatase 209 H Total Protein 7.6 Albumin 4.4 EBV Source Whole Blood EBV DNA (PCR) Not Detected Discharge Plan Discharge Anticipated Discharge Date/Time: 10/26/25 10:25 Patient Disposition: Home, Self-Care Discharge Diagnosis: GWENDOLYN/Transaminitis possibly due to unknown substance ingestion Referrals: Physician,None [Primary Care Provider, Medical] - 1 Week Discharge Medications: Discontinued ibuprofen 200 mg Tablet 400 mg PO Q6H PRN (Reason: headaches and pain) Discharge Orders: Discharge Order (Routine); Ordered 10/26/25 Ordered By: Zahira Bajwa Diet: Advance to usual diet Activity on Discharge: As tolerated Stand Alone Forms: Patient Portal Discharge page Print Language: Irish Other Ambulatory Orders: Comprehensive Met. Panel (Q2D) Timeframe: 20251028 Facility: [facility] - Location: Laboratory Ordered By: Zahira Saucedo Met. Panel (Q2D) Timeframe: 20251030 Facility: [facility] - Location: Laboratory Ordered By: Zahira Saucedo Met. Panel (Q2D) Timeframe: [id number] Facility: [facility] - Location: Laboratory Ordered By: Zahira Saucedo Met. Panel (Q2D) Timeframe: [id number] Facility: [facility] - Location: Laboratory Ordered By: Zahira Saucedo Met. Panel (Q2D) Timeframe: 20251105 Facility: [facility] - Location: Laboratory Ordered By: Zahira Saucedo Met. Panel (Q2D) Timeframe: 20251107 Facility: [facility] - Location: Laboratory Ordered By: Zahira Saucedo Met. Panel (Q2D) Timeframe: 20251109 Facility: [facility] - Location: Laboratory Ordered By: Zahira Saucedo Met. Panel (Q2D) Timeframe: 20251111 Facility: [facility] - Location: Laboratory Ordered By: Zahira Saucedo Met. Panel (Q2D) Timeframe: 20251113 Facility: [facility] - Location: Laboratory Ordered By: Zahira Saucedo Met. Panel (Q2D) Timeframe: 20251115 Facility: [facility] - Location: Laboratory Ordered By: Zahira Aleti Prothrombin Time INR (Q4D) Timeframe: 20251030 Facility: [facility] - Location: Laboratory Ordered By: Zahira Aleti Prothrombin Time INR (Q4D) Timeframe: [id number] Facility: [facility] - Location: Laboratory Ordered By: Zahira Aleti Prothrombin Time INR (Q4D) Timeframe: 20251107 Facility: [facility] - Location: Laboratory Ordered By: Zahira Aleti Prothrombin Time INR (Q4D) Timeframe: 20251111 Facility: [facility] - Location: Laboratory Ordered By: Zahira Aleti Prothrombin Time INR (Q4D) Timeframe: 20251115 Facility: [facility] - Location: Laboratory Ordered By: Zahira Aleti Prothrombin Time INR (Q4D) Timeframe: 20251119 Facility: [facility] - Location: Laboratory Ordered By: Zahira Aleti Prothrombin Time INR (Q4D) Timeframe: [id number] Facility: [facility] - Location: Laboratory Ordered By: Zahira Aleti Prothrombin Time INR (Q4D) Timeframe: 20251127 Facility: [facility] - Location: Laboratory Ordered By: Zahira Aleti Prothrombin Time INR (Q4D) Timeframe: 20251201 Facility: [facility] - Location: Laboratory Ordered By: Zahira Aleti Prothrombin Time INR (Q4D) Timeframe: 20251205 Facility: [facility] - Location: Laboratory Ordered By: Zahira Bajwa Activity Restrictions/Additional Instructions: Transaminitis Discharge Instructions What happened: You were admitted to the hospital because blood tests showed that your liver enzymes (called transaminases) were elevated. This condition is called transaminitis, which means your liver is inflamed or injured. Based on your history, this may have been caused by something you ingested, possibly marijuana that was mixed with another substance. What you need to do now: 1. Stop all substances that could harm your liver - Do not use marijuana, synthetic cannabinoids (like K2 or Spice), or any other recreational drugs. These products can be contaminated with harmful chemicals that damage the liver. - Do not drink any alcohol. Alcohol can make liver injury worse. - Avoid acetaminophen (Tylenol). Do not take more than 2 grams (2,000 mg) per day total if you must use it for pain. Check all your medications?many cold medicines and pain relievers contain acetaminophen. - Stop all herbal supplements, dietary supplements, vitamins, and weight loss products unless your doctor specifically tells you they are safe. Many of these products can cause liver damage. - Tell your doctor about ALL medications, supplements, and substances you are taking or have taken recently, including [id number] products. This will help identify what caused your liver injury. 2. Watch for warning signs Call your doctor or go to the emergency room right away if you notice: - Yellowing of your skin or the whites of your eyes (jaundice) - Dark urine (tea-colored or brown) - Severe nausea, vomiting, or inability to keep fluids down - Severe itching - Confusion, unusual sleepiness, or difficulty thinking clearly - Easy bruising or bleeding - Severe abdominal pain, especially in the upper right side 3. Follow up with your doctor - You have an appointment scheduled for follow-up. Do not miss this appointment. - You will need repeat blood tests to check your liver function. Your doctor will tell you when to get these tests done - Bring a list of everything you have taken in the past few months, including all medications, supplements, and recreational substances. 4. Take care of yourself - Drink plenty of water and stay hydrated. - Eat a healthy, balanced diet. There are no special diet restrictions unless your doctor tells you otherwise. - Get plenty of rest while your liver heals. - If you have nausea, take the anti-nausea medication prescribed to you as directed. 5. Avoid future liver injury - Never use products from unknown sources. Street drugs and unregulated supplements can contain dangerous chemicals that damage your liver. - If you need help with substance use, ask your doctor for resources and support programs. - Always tell your doctors and pharmacists about your liver injury before starting any new medications Important reminders: - Your liver is healing, but it needs time and protection from further injury. - Most people with drug-induced liver injury recover fully if they stop the harmful substance and avoid further liver damage. - The most important thing you can do is avoid all substances that could have caused this problem, especially marijuana products from unknown sources, alcohol, and unnecessary medications or supplements. If you have any questions or concerns, call your doctor right away. Do not wait until your follow-up appointment if you are worried about new symptoms. Care Plan Goals: Please get labs-CMP done every 2 days Follow-up with GI Dr. Avila regarding LFTs every 2 days If they continue to rise or not consistently decreasing Follow up with PCP within a week Health Concerns: See above Plan of Treatment: See above Assessment: See above Patient Instructions: Acute Liver Failure (DC)
--- NOTE | 2025-10-26 10:57 | MHC.CM.PN ---
PT CLEARED TO DC HOME TODAY WITH NO SERVICES
[2025-10-26 11:26] VITALS: BP 136/64; PULSE 60; RESP 16; TEMP 36.2; O2SAT 100
[2025-10-27 15:39] LABS: ANA Pattern 3 Nuclear, Speckled; ANA Titer 3 1:80 titer; Anti Nuclear Antibody Screen POSITIVE (NEGATIVE); Anti Nuclear Antibody Titer 1:320 titer
== END 2025-10-26 11:29 | disposition home or self-care (01) | DRG 812 ==
LOC: HO.ED 21:02 → HO.EDOVER 22:55 → HO.S3 23:59
PROVIDERS: Student in an Organized Health Care Education/Training Program; Admitting Provider Hospitalist; Emergency Provider Emergency Medicine; Visit Provider Student in an Organized Health Care Education/Training Program
DX: T40.711A Poisoning by cannabis, accidental (unintentional), initial encounter (principal); K71.10 Toxic liver disease with hepatic necrosis, without coma; F17.210 Nicotine dependence, cigarettes, uncomplicated; Z71.6 Tobacco abuse counseling
CPT/HCPCS: 36415; 74177; 76705; 80048; 80053; 80076; 80143; 80179; 80307; 81001; 83690; 85025; 85027; 85610; 86038; 86039; 86704; 86706; 86709; 86780; 86803; 87086; 87340; 87389; 87491; 87591; 87798; 99285; J0132; J1650; J2405; J7120; Q9967

== ENCOUNTER → 2025-10-21 18:03 | Outpatient (BNV) | payer MEDICAID, SELFPAY | PROVIDERS: Emergency Provider Emergency Medicine; Visit Provider Student in an Organized Health Care Education/Training Program | DX: R10.9 Unspecified abdominal pain (principal); R16.0 Hepatomegaly, not elsewhere classified | CPT/HCPCS: 74177; 76705 ==

== ENCOUNTER → 2025-10-21 22:15 | Outpatient (BNV) | payer MEDICAID, SELFPAY | PROVIDERS: Admitting Provider Hospitalist; Emergency Provider Emergency Medicine; Visit Provider Student in an Organized Health Care Education/Training Program | DX: R74.01 Elevation of levels of liver transaminase levels (principal) | CPT/HCPCS: 99222; 99232; 99233; 99239; 99499 ==

== ENCOUNTER 2025-11-24 10:18 | Emergency (ER) | payer MEDICAID, SELFPAY ==
--- NOTE | 2025-11-24 10:19 | ECG_ITS ---
Test Reason : cp Blood Pressure : */* mmHG Vent. Rate : 97 BPM Atrial Rate : 97 BPM P-R Int : 152 ms QRS Dur : 98 ms QT Int : 322 ms P-R-T Axes : 72 83 51 degrees QTcB Int : 408 ms Normal sinus rhythm Normal ECG No previous ECGs available Referred By: Marcelina Blair Electronically Signed By: KENDELL GARCIA MD
[2025-11-24 10:21] VITALS: BP 159/83; PULSE 97; RESP 18; TEMP 36.6; O2SAT 98
--- NOTE | 2025-11-24 10:21 | ED_ITS ---
HPI - Abdominal Pain General Chief Complaint: General Medical Stated Complaint: Chest Pain, Wants To Check For Liver Failure Time Seen by Provider: 11/24/25 12:19 History of Present Illness ED Provider: Gloria WELLS narrative: The patient is a 25-year-old male who presents with 2 days of feeling unwell. He says that he has had body aches. He has also had abdominal pain and some vomiting. He has also had headaches and some sore throat. He thinks he might have had a fever. The patient was hospitalized at this hospital last month for an acute liver injury. The etiology of the acute liver injury was never definitively determined. He was discharged with a plan for outpatient follow up but he says he has not yet been able to establish a primary care doctor so he has not additional testing. During his hospitalization he received empiric N- acetylcysteine although there was no definite report of an acetaminophen overdose. Related Data Previous Rx's ?Medication ?Instructions ?Recorded amoxicillin 500 mg capsule 500 mg PO BID 10 days #20 c aps 11/24/25 ibuprofen 400 mg tablet 400 mg PO Q6H PRN pain #14 t abs 11/24/25 ondansetron 4 mg disintegrating 4 mg PO Q6H PRN nausea and 11/24/25 tablet vomiting #10 tabs Allergies Allergy/AdvReac Type Severity Reaction Status Date / Time No Known Allergies (No Known Allergy Verified 11/24/25 10:23 Allergies*) Review of Systems Review of Systems Yes all other systems are reviewed and are negative PMFSH Past Medical History Medical History Patient denies medical problems Social History Social History Household Members: Family Household Members Other:: mother Housing: Apartment Do you presently have visiting nurse or other home services: No Alcohol intake: current Alcohol intake frequency: a few times a month Alcohol type: beer Patient Tobacco Use Status: Current someday Tobacco user Tobacco use type: Cigarette e-Cigarette/Vaping Use: Currently Using Advance Directives: No Advance Directives Information Provided: No service: No Physical Exam ED Vital Signs: Vital Signs - 24 hr 11/24/25 10:21 11/24/25 13:53 Temperature 98 F 98.3 F Pulse Rate 97 75 Respiratory Rate 18 Blood Pressure 159/83 H 140/85 H Pulse Oximetry 98 95 Oxygen Delivery Method Room Air Room Air BMI result Body Mass Index 30.0 Const Other: The patient is awake, alert, pleasant, cooperative. He does not appear obviously acutely ill or toxic. Orientation/consciousness: patient oriented x3 HENMT Other: Face is symmetrical. Mucous membranes moist. The posterior pharynx may have some minimal erythema but no remarkable findings. No trismus. Eyes General: appearance normal, both eyes and all related structures Neck Other: No significant adenopathy appreciated. Neck is supple. Resp Effort & Inspection: normal respiratory effort Auscultation: clear to auscultation bilaterally Cardio Rate: regular rate Rhythm: regular rhythm Heart sounds: S1 normal heart sound present and S2 normal heart sound present GI Other: Abdomen is soft and nontender Skin Other: The skin is dry and unremarkable General skin exam: no rashes or lesions noted Neuro General: patient oriented x3, tone normal, moves all extremities, no focal motor deficits and CN's II-XI intact bilaterally Extrem Other: There is no calf swelling or tenderness. No asymmetry. No peripheral edema. Course Course Course Narrative: This is a Rapid Medical Exam performed in triage by Marcelina Blair PA-C. Full HPI, ROS and PE to be performed by primary ED provider. 25 yo M w/PMHx cannabis use, transaminitis presenting to the ED c/o headache, abdominal pain, N/V, cough x2 days. Has not followed up since recent admission for liver failure. denies ETOH use in the past month or Tylenol use PE: NAD, nontoxic appearing, ambulating with steady gait Plan: EKG, Labs, UA, SARs Medical Decision Making Lab Data 11/24/25 10:44 11/24/25 10:44 Labs: Lab Results 11/24/25 11/24/25 Range/Units 10:44 10:45 WBC 6.7 (4.8-10.8) X10*3/uL RBC 5.43 (4.60-5.80) X10*6/uL Hgb 16.3 (14.0-18.0) g/dl Hct 47.9 (42.0-52.0) % MCV 88.2 (80.0-98.0) fL MCH 30.0 (27.0-33.0) pg MCHC 34.0 (31.0-36.0) g/dl RDW 14.2 (11.0-16.0) % Plt Count 136 L (160-400) X10*3/uL MPV 11.5 (9.4-12.4) fL Immature Gran % (Auto) 0.3 (0.0-0.4) % Neut % (Auto) 78.4 H (45-73) % Lymph % (Auto) 4.5 L (20-40) % [place] % (Auto) 16.2 H (2-11) % Eos % (Auto) 0.3 (0-4) % Baso % (Auto) 0.3 (0-2) % Lymph # (Auto) 0.3 L (1.2-4.9) X10*3/uL [place] # (Auto) 1.1 (0.1-1.2) X10*3/uL Eos # (Auto) 0.0 (0.0-0.4) X10*3/uL Baso # (Auto) 0.0 (0.0-0.2) X10*3/uL Abs Immat Gran (auto) 0.02 (0.00-0.03) X10*3/uL Absolute Neuts (auto) 5.2 (2.0-8.3) x10*3/uL Absolute Nucleated RBC 0.000 (0.0-0.012) X10*3/uL Nucleated RBC % (auto) 0.0 (0.0-0.2) /100WBC PT 14.5 H (11.2-13.5) SEC INR 1.2 H (0.9-1.1) Sodium 139 (135-145) mmol/L Potassium 3.7 (3.3-5.1) mmol/L Chloride 107 (96-108) mmol/L Carbon Dioxide 24 (22-29) mmol/L Anion Gap 12 (12-20) BUN 10 (9-16) mg/dL Creatinine 0.81 (0.5-1.4) mg/dL Estim Creat Clear Calc 162.5 Estimated GFR > 60 Random Glucose 90 (60-115) mg/dL Calcium 9.6 (8.4-10.2) mg/dL Magnesium 1.6 (1.6-2.6) mg/dL Total Bilirubin 1.9 H (0.0-1.0) mg/dL Direct Bilirubin 1.1 H (0.0-0.5) mg/dL AST 75 H (5-37) U/L ALT 136 H (0-40) U/L Alkaline Phosphatase 82 (39-117) U/L Total Creatine Kinase 84 (38-174) U/L Troponin I High Sens < 2.7 (<3.5-35.0) ng/L Total Protein 7.2 (6.5-8.0) g/dL Albumin 4.5 (3.5-5.0) g/dL Lipase 11 (8-78) U/L Acetaminophen < 3 (<30) mcg/mL Ethyl Alcohol < 10 mg/dL Influenza Type A (PCR) POSITIVE A (Negative) Influenza Type B (PCR) NEGATIVE (Negative) RSV RNA Qual (PCR) NEGATIVE (Negative) SARS-CoV-2 RNA (RT-PCR) NEGATIVE (Negative) S. pyogenes GrpA ARCHANA Positive A (Negative) Medications Administered Discontinued Medications Generic Name Dose Route Start Last Admin Trade Name Freq PRN Reason Stop Dose Admin Ketorolac Tromethamine 30 mg 11/24/25 12:30 11/24/25 12:50 Ketorolac Tromethamine 30 Mg/Ml Vial IM 11/24/25 12:31 30 mg ONCE ONE Administration Ondansetron HCl 4 mg 11/24/25 12:30 11/24/25 12:50 Ondansetron Odt 4 Mg Tab.Rapdis TRANSLINGU 11/24/25 12:31 4 mg ONCE ONE Administration Discharge Plan Discharge Clinical Impression: Influenza, Strep throat Patient Disposition: Home, Self-Care Instructions: Influenza (ED), Strep Throat (ED) Additional Instructions: You have tested positive today for both influenza and strep. I have sent a prescription for the antibiotic amoxicillin which you may use to treat the strep throat. Please rest and take it easy. Drink lot of fluids. I have sent a prescription for ibuprofen which you may use as needed for discomfort and fever. I have also sent a prescription for the anti nausea medication ondansetron (also known as Zofran). You may use this medication if you feel nauseated. Please continue your efforts to get a primary care doctor. You has been given the contact information for several primary care practices. Return to the emergency room if you feel significantly worse. Prescriptions: New amoxicillin 500 mg capsule 500 mg PO BID 10 Days Qty: 20 0RF ondansetron 4 mg tablet,disintegrating 4 mg PO Q6H PRN (Reason: nausea and vomiting) Qty: 10 0RF ibuprofen 400 mg tablet 400 mg PO Q6H PRN (Reason: pain) Qty: 14 0RF Referrals: [facility] [Provider Group] [facility] [Provider Group] [facility] [Provider Group] [facility] Primary Care, [place] [Provider Group, Internal Medicine] [facility] Primary Care, [place] [Provider Group, Internal Medicine] [facility] Primary Care, [facility] [Provider Group, Primary Care] Lory Donovan MD [Physician, Internal Medicine] Print Language: Slovenian
[2025-11-24 10:49] LABS: MANUAL DIFF FLAG NO
[2025-11-24 10:58] LABS: INTERNATIONAL NORM RATIO 1.2 (0.9-1.1); Prothrombin Time 14.5 SEC (11.2-13.5)
[2025-11-24 11:05] LABS: Hematocrit 47.9 % (42.0-52.0); Hemoglobin 16.3 g/dl (14.0-18.0); Imm Gran Abs Auto 0.02 X10*3/uL (0.00-0.03); Imm Gran Pct Auto 0.3 % (0.0-0.4); Lymphocytes Absolute Auto 0.3 X10*3/uL (1.2-4.9); Mean Corpuscular HGB Conc 34.0 g/dl (31.0-36.0); Mean Corpuscular Hemoglobin 30.0 pg (27.0-33.0); Mean Corpuscular Volume 88.2 fL (80.0-98.0); NRBC Abs Auto 0.000 X10*3/uL (0.0-0.012); NRBC Pct Auto 0.0 /100WBC (0.0-0.2); Platelet Count 136 X10*3/uL (160-400); Red Blood Count 5.43 X10*6/uL (4.60-5.80); White Blood Count 6.7 X10*3/uL (4.8-10.8)
[2025-11-24 11:11] LABS: Strep A Nucleic Acid Positive (Negative)
[2025-11-24 11:11] LABS: Alanine Aminotransferase 136 U/L (0-40); Albumin Level 4.5 g/dL (3.5-5.0); Alkaline Phosphatase 82 U/L (39-117); Anion Gap 12 (12-20); Aspartate Amino Transferase 75 U/L (5-37); Blood Urea Nitrogen 10 mg/dL (9-16); Calcium 9.6 mg/dL (8.4-10.2); Carbon Dioxide 24 mmol/L (22-29); Chloride 107 mmol/L (96-108); Creatinine Clr Calc Pharmacy 162.5; Estimated Glomerular Filt Rate > 60; Lipase 11 U/L (8-78); Magnesium 1.6 mg/dL (1.6-2.6); Potassium 3.7 mmol/L (3.3-5.1); Sodium 139 mmol/L (135-145); Total Protein 7.2 g/dL (6.5-8.0)
[2025-11-24 11:14] LABS: Acetaminophen LAB < 3 mcg/mL (<30)
[2025-11-24 11:20] LABS: Troponin-I High Sensitivity < 2.7 ng/L (<3.5-35.0)
[2025-11-24 11:44] LABS: Resp Syncy Virus RNA Qual PCR NEGATIVE (Negative); SARS COV2 PCR INHOUSE NEGATIVE (Negative)
[2025-11-24 13:53] VITALS: BP 140/85; PULSE 75; TEMP 36.8; O2SAT 95
[2025-11-24 14:25] VITALS: BP 140/85; PULSE 75; RESP 18; TEMP 36.8; O2SAT 95
== END 2025-11-24 14:26 | disposition home or self-care (01) ==
PROVIDERS: Physician Assistant; Emergency Provider Emergency Medicine
DX: J10.1 Influenza due to other identified influenza virus with other respiratory manifestations (principal); R07.9 Chest pain, unspecified; M79.10 Myalgia, unspecified site; R10.9 Unspecified abdominal pain; R11.10 Vomiting, unspecified; R51.9 Headache, unspecified; F17.200 Nicotine dependence, unspecified, uncomplicated; Z71.6 Tobacco abuse counseling
CPT/HCPCS: 36415; 80048; 80076; 80143; 80307; 82550; 83690; 83735; 84484; 85025; 85610; 87637; 87651; 93005; 96372; 99284; J1885

== ENCOUNTER → 2025-11-24 10:19 | Outpatient (BNV) | payer MEDICAID, SELFPAY | PROVIDERS: Emergency Provider Emergency Medicine; Visit Provider Internal Medicine Cardiovascular Disease | DX: R07.9 Chest pain, unspecified (principal) | CPT/HCPCS: 93010 ==